=== PATIENT | male | born 1965 | race Caucasian/White ===

== ENCOUNTER 2020-03-02 11:48 | Emergency (ER) | payer OTHER, SELFPAY ==
[2020-03-02] VITALS (8 sets, daily range): BP systolic 120–159; BP diastolic 77–90; PULSE 93–153; RESP 10–20; TEMP 36.9; O2SAT 94–97; BMI 38.6
--- NOTE | 2020-03-02 11:03 | ECG_ITS ---
Test Reason : ON METHADONE Blood Pressure : / mmHG Vent. Rate : 141 BPM Atrial Rate : 150 BPM P-R Int : 000 ms QRS Dur : 088 ms QT Int : 306 ms P-R-T Axes : 000 016 -05 degrees QTc Int : 468 ms Atrial fibrillation with rapid ventricular response Nonspecific ST and T wave abnormality Abnormal ECG When compared with ECG of 02-MAR-2020 11:18, Non-specific change in ST segment in Inferior leads Referred By: Fanny Bermudez Electronically Signed By:ANGELO GOMEZ MD
--- NOTE | 2020-03-02 11:54 | ECG_ITS ---
Test Reason : TACHYCARDIA Blood Pressure : / mmHG Vent. Rate : 148 BPM Atrial Rate : 144 BPM P-R Int : 000 ms QRS Dur : 090 ms QT Int : 308 ms P-R-T Axes : 000 025 012 degrees QTc Int : 483 ms Atrial fibrillation with rapid ventricular response Nonspecific ST abnormality Abnormal ECG When compared with ECG of 02-MAR-2020 11:22, No significant change was found Referred By: Fanny Bermudez Electronically Signed By:ANGELO GOMEZ MD
--- NOTE | 2020-03-02 11:55 | XR_ITS ---
EXAMINATION: XR CHEST CLINICAL INFORMATION: Palpitations COMPARISON: None TECHNIQUE: Frontal view of the chest was obtained. FINDINGS: The lungs are well-expanded and clear of acute process. The heart size and pulmonary vascularity is normal. No gross bony abnormality seen. XR/XR chest 1V IMPRESSION: Unremarkable chest exam.
--- NOTE | 2020-03-02 11:57 | ED.ARRPALP ---
HPI - Arrhythmia/Palpitations General Chief Complaint: Recheck/Abnormal Lab/Rx Time Seen by Provider: 03/02/20 11:54 Source: patient Mode of arrival: ambulatory Limitations: no limitations History of Present Illness HPI narrative: sent by cardiology office for afib with RVR - asymptomatic, found on routine yearly EKG patient finally broke to sinus tachycardia - will start on metoprolol take off amlodipine and start on eliquis - he has a chadsvasc2 score of 1 at this time MD complaint: rapid heart beat Onset (ago): unknown Duration: constant Severity: mild Context: occurred during rest Associated symptoms: denies other symptoms Related Data Home Medications Medication Instructions Recorded Confirmed acetaminophen [Tylenol] 650 mg PO QID PRN 03/02/20 03/02/20 amlodipine 10 mg PO DAILY 03/02/20 03/02/20 ibuprofen 800 mg PO QID PRN 03/02/20 03/02/20 methadone 30 mg PO DAILY@1700 03/02/20 03/02/20 Previous Rx's Medication Instructions Recorded apixaban [Eliquis] 5 mg PO Q12H #60 tab 03/02/20 metoprolol succinate 50 mg PO DAILY #30 ea 03/02/20 Allergies Allergy/AdvReac Type Severity Reaction Status Date / Time fentanyl [FENTANYL] Allergy Severe VERY Verified 03/02/20 11:55 SHALLOW BREATHING W/LARGE DOSES, shallow breathing baclofen [BACLOFEN] Allergy Unknown HEADACHE Verified 03/02/20 11:55 naproxen [NAPROXEN] AdvReac Mild HEADACHE Verified 03/02/20 11:55 Review of Systems Review of Systems: Constitutional : No Weight loss, No Fever, No Chills, No Fatigue, No Malaise ENT/Mouth : No sore throat, No Rhinorrhea Eyes: No Eye Pain, No Swelling, No Redness Cardiovascular : No Chest Pain, No SOB, No Dyspnea on Exertion, No Orthopnea, No Edema, No Palpitations Respiratory : No Cough, No Sputum, No Wheezing Gastrointestinal : No Nausea, No Vomiting, No Diarrhea, No Constipation, No abdominal Pain, No Hematochezia, No Melena Genitourinary : No Dysuria, No Urinary Frequency, No Hematuria, Musculoskeletal : pos 3 weeks of L shoulder joint pain, No Myalgias, No Joint Swelling Skin : No Skin Lesions, No rash Neuro : No Weakness, No Numbness, No Dizziness, No Headache Psych : No Anxiety/Panic, No Depression Heme/Lymph: No Bruising, No Bleeding,No Lymphadenopathy Endocrine : No Polyuria, No Polydipsia All other systems reviewed and are negative [facility] Past Medical History Attestation statement: The following information was validated with the patient. Medical History Chronic pain HTN (hypertension) Social History Social History (Updated 03/02/20 @ 12:06 by Fanny Bermudez DO) Smoking Status: Never smoker Use of substances other than those prescribed or required for medical reasons: No Physical Exam Vital Signs: Vital Signs: Last Vital Signs Temp 98.4 F 03/02/20 11:51 Pulse 93 03/02/20 15:43 Resp 18 03/02/20 15:24 BP 120/86 03/02/20 15:43 Pulse Ox 96 03/02/20 15:24 Body Mass Index 38.6 Appearance: Alert. Oriented X3. No acute distress. Eyes: Pupils equal, round and reactive to light. ENT: Pharynx normal. Neck: Normal inspection. Neck supple. CVS: tachycardic and irregular heart rate and rhythm. Pulses normal. Respiratory: No respiratory distress. Breath sounds normal. Abdomen: Soft and non-tender. Skin: Skin warm and dry. Normal skin color. Normal skin turgor. Extremities: No lower extremity edema. No calf ttp Neuro: Oriented X 3. No motor deficit. No sensory deficit. Course Course Course Narrative: patient no response to IV bolus, will start on diltiazem drip HR 105 on dilt gtt blood workup negative, chadsvasc score 1 will start on eliquis until he follows up with PCP and Cardiology patient in NSR will give oral metoprolol and likely DC home with m MDM - Arrhythmia/Palpitations MDM Narrative Medical decision making narrative: 55 yo male with hx of HTN and chronic pain who is on methadone presented as outpatient for yearly EKG (qTc check with methadone) - found to be in afib with RVR he is completely asymptomatic, his only new complaint is L shoulder pain x 3 weeks which he is taking medications for through PCP at this time will need labs, ddimer, troponin, CXR, IV dilt for rate control, dispo per results and findings. Lab Data Result diagrams: 03/02/20 11:59 12/01/20 12:00 Labs: Lab Results 03/02/20 03/02/20 03/02/20 Range/Units 11:59 11:59 11:59 WBC 7.3 (4.8-10.8) X10*3/uL RBC 4.89 (4.60-5.80) X10*6/uL Hgb 14.4 (14.0-18.0) g/dl Hct 44.6 (42-52) % MCV 91.2 (80-98) fL MCH 29.4 (27.0-33.0) pg MCHC 32.3 (31.0-36.0) g/dl RDW 13.8 (11.0-16.0) % Plt Count 229 (160-400) X10*3/uL MPV 8.8 L (9.4-12.4) fL Immature Gran % (Auto) 0.3 (0.0-0.4) % Neut % (Auto) 70.0 (45-73) % Lymph % (Auto) 19.9 L (20-40) % [place] % (Auto) 8.9 (2-11) % Eos % (Auto) 0.6 (0-4) % Baso % (Auto) 0.3 (0-2) % Lymph # (Auto) 1.5 (1.2-4.9) X10*3/uL [place] # (Auto) 0.7 (0.1-1.2) X10*3/uL Eos # (Auto) 0.0 (0.0-0.4) X10*3/uL Baso # (Auto) 0.0 (0.0-0.2) X10*3/uL Abs Immat Gran (auto) 0.02 (0.00-0.03) X10*3/uL Absolute Neuts (auto) 5.1 (2.0-8.3) X10*3/uL Absolute Nucleated RBC 0.000 (0.0-0.012) X10*3/uL Nucleated RBC % (auto) 0.0 (0.0-0.2) /100WBC PT 10.8 (10.8-13.0) SEC INR 0.9 (0.9-1.1) APTT 29.8 (24.1-38.0) SEC D-Dimer < 200 NG/ML Sodium (135-145) mmol/L Potassium (3.3-5.1) mmol/l Chloride (96-108) mmol/L Carbon Dioxide (22-29) mmol/L Anion Gap (12-20) BUN (9-16) mg/dL Creatinine (0.5-1.4) mg/dL Estim Creat Clear Calc Estimated GFR Random Glucose (60-115) mg/dL Calcium 9.2 (8.4-10.2) mg/dL Magnesium 2.0 (1.6-2.6) mg/dL Total Bilirubin 0.4 (0.0-1.0) mg/dL Direct Bilirubin < 0.2 (0.0-0.5) mg/dL AST 23 (5-37) U/L ALT 34 (0-40) U/L Alkaline Phosphatase 104 (39-117) U/L Troponin I High Sens (<3.5-35.0) ng/L B-Natriuretic Peptide (<100) pg/mL Total Protein 7.7 (6.5-8.0) g/dL Albumin 4.7 (3.5-5.0) g/dL TSH 0.38 (0.32-4.0) uIU/mL COVID-19 (GUY) (Negative) COVID-19 Clin Com 03/02/20 03/02/20 03/02/20 Range/Units 11:59 12:00 12:00 WBC (4.8-10.8) X10*3/uL RBC (4.60-5.80) X10*6/uL Hgb (14.0-18.0) g/dl Hct (42-52) % MCV (80-98) fL MCH (27.0-33.0) pg MCHC (31.0-36.0) g/dl RDW (11.0-16.0) % Plt Count (160-400) X10*3/uL MPV (9.4-12.4) fL Immature Gran % (Auto) (0.0-0.4) % Neut % (Auto) (45-73) % Lymph % (Auto) (20-40) % [place] % (Auto) (2-11) % Eos % (Auto) (0-4) % Baso % (Auto) (0-2) % Lymph # (Auto) (1.2-4.9) X10*3/uL [place] # (Auto) (0.1-1.2) X10*3/uL Eos # (Auto) (0.0-0.4) X10*3/uL Baso # (Auto) (0.0-0.2) X10*3/uL Abs Immat Gran (auto) (0.00-0.03) X10*3/uL Absolute Neuts (auto) (2.0-8.3) X10*3/uL Absolute Nucleated RBC (0.0-0.012) X10*3/uL Nucleated RBC % (auto) (0.0-0.2) /100WBC PT (10.8-13.0) SEC INR (0.9-1.1) APTT (24.1-38.0) SEC D-Dimer NG/ML Sodium 140 (135-145) mmol/L Potassium 4.2 (3.3-5.1) mmol/l Chloride 101 (96-108) mmol/L Carbon Dioxide 29 (22-29) mmol/L Anion Gap 14 (12-20) BUN 15 (9-16) mg/dL Creatinine 0.76 (0.5-1.4) mg/dL Estim Creat Clear Calc 158.8 Estimated GFR > 60 Random Glucose 125 H (60-115) mg/dL Calcium 9.1 (8.4-10.2) mg/dL Magnesium (1.6-2.6) mg/dL Total Bilirubin (0.0-1.0) mg/dL Direct Bilirubin (0.0-0.5) mg/dL AST (5-37) U/L ALT (0-40) U/L Alkaline Phosphatase (39-117) U/L Troponin I High Sens < 3.5 (<3.5-35.0) ng/L B-Natriuretic Peptide < 10 (<100) pg/mL Total Protein (6.5-8.0) g/dL Albumin (3.5-5.0) g/dL TSH (0.32-4.0) uIU/mL COVID-19 (GUY) (Negative) COVID-19 Clin Com 03/02/20 Range/Units 12:00 WBC (4.8-10.8) X10*3/uL RBC (4.60-5.80) X10*6/uL Hgb (14.0-18.0) g/dl Hct (42-52) % MCV (80-98) fL MCH (27.0-33.0) pg MCHC (31.0-36.0) g/dl RDW (11.0-16.0) % Plt Count (160-400) X10*3/uL MPV (9.4-12.4) fL Immature Gran % (Auto) (0.0-0.4) % Neut % (Auto) (45-73) % Lymph % (Auto) (20-40) % [place] % (Auto) (2-11) % Eos % (Auto) (0-4) % Baso % (Auto) (0-2) % Lymph # (Auto) (1.2-4.9) X10*3/uL [place] # (Auto) (0.1-1.2) X10*3/uL Eos # (Auto) (0.0-0.4) X10*3/uL Baso # (Auto) (0.0-0.2) X10*3/uL Abs Immat Gran (auto) (0.00-0.03) X10*3/uL Absolute Neuts (auto) (2.0-8.3) X10*3/uL Absolute Nucleated RBC (0.0-0.012) X10*3/uL Nucleated RBC % (auto) (0.0-0.2) /100WBC PT (10.8-13.0) SEC INR (0.9-1.1) APTT (24.1-38.0) SEC D-Dimer NG/ML Sodium (135-145) mmol/L Potassium (3.3-5.1) mmol/l Chloride (96-108) mmol/L Carbon Dioxide (22-29) mmol/L Anion Gap (12-20) BUN (9-16) mg/dL Creatinine (0.5-1.4) mg/dL Estim Creat Clear Calc Estimated GFR Random Glucose (60-115) mg/dL Calcium (8.4-10.2) mg/dL Magnesium (1.6-2.6) mg/dL Total Bilirubin (0.0-1.0) mg/dL Direct Bilirubin (0.0-0.5) mg/dL AST (5-37) U/L ALT (0-40) U/L Alkaline Phosphatase (39-117) U/L Troponin I High Sens (<3.5-35.0) ng/L B-Natriuretic Peptide (<100) pg/mL Total Protein (6.5-8.0) g/dL Albumin (3.5-5.0) g/dL TSH (0.32-4.0) uIU/mL COVID-19 (GUY) Negative (Negative) COVID-19 Clin Com See Note ECG Data Attestation: I personally reviewed and interpreted this ECG as follows: ECG interpretation date: 03/02/20 ECG interpretation time: 12:04 Interpretation: Rate: 140s Rhythm: afib with RVR [place]: normal Normal P waves. Normal GEORGE. Normal QRS complex. ST T wave : nonspecific, no OSCAR qTC: normal prior studies: changed from prior The study has been interpreted contemporaneously by me. . Rate: 93 Rhythm: NSR [place]: normal Normal P waves. Normal GEORGE. Normal QRS complex. ST T wave : no OSCAR normal ST t waves qTC: normal prior studies: changed, no acute ischemia now in NSR The study has been interpreted contemporaneously by me. . Critical Care Time Critical Care Time Critical Care Time: Yes Total Critical Care Time: 35 Attestation: IV diltiazem bolus and IV diltiazem drip for afib with RVR I attest to this time spent taking care of the patient Discharge Plan Discharge Clinical Impression: Atrial fibrillation Qualifiers: Atrial fibrillation type: unspecified Qualified Code(s): I48.91 - Unspecified atrial fibrillation Patient Disposition: Home, Self-Care Instructions: A-fib (Atrial Fibrillation) (ED), Safe Use of Anticoagulants (ED) Additional Instructions: return to ED for any worsening symptoms or concerns stop taking amlodipine start taking eliquis tonight, no NSAIDs or aspirin with eliquis Prescriptions: New metoprolol succinate 50 mg capsule,sprinkle,ER 24hr 50 mg PO DAILY Qty: 30 RF: 0 Eliquis 5 mg tablet 5 mg PO Q12H Qty: 60 RF: 0 No Action acetaminophen [Tylenol] 325 mg Tablet 650 mg PO QID PRN (Reason: Pain) RF: 0 ibuprofen 800 mg Tablet 800 mg PO QID PRN (Reason: Pain) RF: 0 methadone 10 mg Tablet 30 mg PO DAILY@1700 RF: 0 amlodipine 10 mg Tablet 10 mg PO DAILY RF: 0 Referrals: Prieto Alvarado MD [Primary Care Provider] - 2 days (call for next available appointment) Stand Alone Forms: Work/School Release
[2020-03-02] MEDS: dilTIAZem HCL 50 MG/10 ML VIAL 10 MG IVPUSH (12:03)
[2020-03-02 12:08] LABS: Basophils Percent Auto 0.3 % (0-2); Eosinophils Percent Auto 0.6 % (0-4); Hematocrit 44.6 % (42-52); Hemoglobin 14.4 g/dl (14.0-18.0); Imm Gran Abs Auto 0.02 X10*3/uL (0.00-0.03); Imm Gran Pct Auto 0.3 % (0.0-0.4); Lymphocytes Absolute Auto 1.5 X10*3/uL (1.2-4.9); Lymphocytes Percent Auto 19.9 % (20-40); Mean Corpuscular HGB Conc 32.3 g/dl (31.0-36.0); Mean Corpuscular Hemoglobin 29.4 pg (27.0-33.0); Mean Corpuscular Volume 91.2 fL (80-98); Mean Platelet Volume 8.8 fL (9.4-12.4); Monocytes Absolute Auto 0.7 X10*3/uL (0.1-1.2); Monocytes Percent Auto 8.9 % (2-11); Neutrophils Absolute Auto 5.1 X10*3/uL (2.0-8.3); Platelet Count 229 X10*3/uL (160-400); Red Blood Count 4.89 X10*6/uL (4.60-5.80); Red Cell Distribution Width 13.8 % (11.0-16.0); White Blood Count 7.3 X10*3/uL (4.8-10.8)
[2020-03-02 12:09] LABS: MANUAL DIFF FLAG NO
[2020-03-02 12:15] LABS: INTERNATIONAL NORM RATIO 0.9 (0.9-1.1); Prothrombin Time 10.8 SEC (10.8-13.0)
[2020-03-02 12:17] LABS: Partial Thromboplastin Time 29.8 SEC (24.1-38.0)
[2020-03-02 12:18] LABS: D Dimer < 200 NG/ML
[2020-03-02 12:25] LABS: COVID-19 Test Negative (Negative)
[2020-03-02 12:37] LABS: Anion Gap 14 (12-20); Blood Urea Nitrogen 15 mg/dL (9-16); Calcium 9.1 mg/dL (8.4-10.2); Carbon Dioxide 29 mmol/L (22-29); Chloride 101 mmol/L (96-108); Creatinine Clr Calc Pharmacy 158.8; Estimated Glomerular Filt Rate > 60; Glucose Random 125 mg/dL (60-115); Potassium 4.2 mmol/l (3.3-5.1); Sodium 140 mmol/L (135-145)
[2020-03-02 12:39] LABS: Alanine Aminotransferase 34 U/L (0-40); Albumin Level 4.7 g/dL (3.5-5.0); Alkaline Phosphatase 104 U/L (39-117); Aspartate Amino Transferase 23 U/L (5-37); Bilirubin Direct < 0.2 mg/dL (0.0-0.5); Bilirubin Total 0.4 mg/dL (0.0-1.0); Calcium 9.2 mg/dL (8.4-10.2); Total Protein 7.7 g/dL (6.5-8.0)
[2020-03-02 12:43] LABS: Troponin-I High Sensitivity < 3.5 ng/L (<3.5-35.0)
[2020-03-02 12:45] LABS: B Type Natriuretic Peptide < 10 pg/mL (<100)
[2020-03-02 12:59] LABS: Thyroid Stimulating Hormone 0.38 uIU/mL (0.32-4.0)
--- NOTE | 2020-03-02 13:02 | PC.NURSE ---
CARDIZEM TITRATED UP TO 15MG/HR, REMAINS IN RAPID AFIB BETWEEN 120 AND 140BPM. REMAINS ASYMPTOMATIC, REPORTING L ELBOW PAIN ONLY.
--- NOTE | 2020-03-02 14:08 | ECG_ITS ---
Test Reason : REPEAT Blood Pressure : / mmHG Vent. Rate : 093 BPM Atrial Rate : 093 BPM P-R Int : 166 ms QRS Dur : 094 ms QT Int : 360 ms P-R-T Axes : 019 026 034 degrees QTc Int : 447 ms Normal sinus rhythm Normal ECG When compared with ECG of 02-MAR-2020 11:56, Sinus rhythm has replaced Atrial fibrillation Vent. rate has decreased BY 55 BPM Non-specific change in ST segment in Inferior leads ST no longer depressed in Anterolateral leads Referred By: Fanny Bermudez Electronically Signed By:ANGELO GOMEZ MD
[2020-03-02] MEDS: Metoprolol Tartrate 25 MG TABLET PO (15:43)
== END 2020-03-02 16:00 | disposition home or self-care (01) ==
LOC: HO.ED 11:49
PROVIDERS: Emergency Provider Emergency Medicine; PCP Family Medicine; Visit Provider Family Medicine
DX: I48.91 Unspecified atrial fibrillation (principal); I10 Essential (primary) hypertension; G89.29 Other chronic pain; Z79.891 Long term (current) use of opiate analgesic; Z20.828 Contact with and (suspected) exposure to other viral communicable diseases
CPT/HCPCS: 36415; 71045; 80048; 80076; 82310; 83735; 83880; 84443; 84484; 85025; 85379; 85610; 85730; 87635; 93005; 96365; 96366; 96375; 99284; 99291

== ENCOUNTER 2020-03-08 16:08 | Outpatient (REF) | payer OTHER, SELFPAY ==
[2020-03-08 17:39] LABS: Amphetamine Screen Urine Not Detected (Not Detect); Barbiturates, Urine Not Detected (Not Detect); Benzodiazepines Screen Urine Not Detected (Not Detect); Cannabinoid Screen Urine Not Detected (Not Detect); Cocaine Screen Urine Not Detected (Not Detect); Opiate Screen Urine Not Detected (Not Detect); Phencyclidine Screen Urine Not Detected (Not Detect)
[2020-03-08 17:45] LABS: Free T4 (Free Thyroxine) 0.98 ng/dL (0.71-1.85)
== END 2020-03-08 16:09 | disposition home or self-care (01) ==
LOC: HO.LAB 16:08
PROVIDERS: PCP Family Medicine; Visit Provider Family Medicine
DX: I48.91 Unspecified atrial fibrillation (principal); Z79.891 Long term (current) use of opiate analgesic
CPT/HCPCS: 80307; 84439; 84443

== ENCOUNTER → 2020-03-24 12:52 | Outpatient (REF) | payer OTHER, SELFPAY ==
--- NOTE | 2020-03-24 13:00 | CA_ITS ---
Transthoracic Echocardiogram Patient (Last, First, Middle): Leonardo Howe A Gender: Male Date of : 1965 Age: 55 Procedure Date: 03/24/2020 Procedure Type: Transthoracic Echocardiogram Location: OP Height: 185.42 cm Weight: 134.72 kg BSA: 2.55 m2 Heart Rate: bpm BP: 138 / 80 mmHg Material Analyst: Referring MD: Prieto Alvarado MD Tow Driver: Tod Pina MD Symptoms: I48.91 AFIB Study Quality: Fair ECG Rhythm: Sinus Conclusions: - 1. Normal LV systolic and diastolic function 2. Normal cardiac valvular Doppler 3. Normal RV systolic pressure 4. No pericardial effusion Findings Left Ventricle Normal left ventricular size, thickness, and systolic function. The visually estimated ejection fraction is between 60-65%. Diastolic function is normal for age. Right Ventricle Normal right ventricular cavity size and systolic function. Atria The left atrium is likely dilated. There is lipomatous hypertrophy of the interatrial septum. There is no evidence of interatrial shunt. The right atrium is normal in size. Aortic Valve Normal aortic valve structure and function. There is no aortic valve stenosis. There is no aortic valve regurgitation. Mitral Valve Normal mitral valve structure and function. There is trace mitral valve regurgitation. There is no mitral valve stenosis. Pulmonic Valve The pulmonic valve is likely normal. Tricuspid Valve Normal tricuspid valve structure. There is trace tricuspid valve regurgitation. The right ventricular systolic pressure is normal. The right ventricular systolic pressure is 18 mmHg. There is no evidence of pulmonary hypertension. Great Vessels All visible segments of the aorta are normal in size. The pulmonary artery was not well visualized. Venous The inferior vena cava is normal in size and collapses greater than 50% with inspiration. Pericardium/Pleural There is no evidence of pericardial effusion. Prior Study Comparison No prior study available for comparison. Measurements 2D Linear Measurements IVSd: 1.07 0.6-0.9/0.6-1.0 cm LVIDd: 5.39 3.9-5.3/4.2-5.9 cm LVIDd Index: 2.11 2.4-3.2/2.2-3.1 cm/m2 LVIDs: 3.35 2.0-3.6 cm LVPWd: 0.96 0.7-1.1 cm Ao Root: 3.60 2.1-3.5 cm LA Diam: 4.00 2.7-3.8/3.0-4.0 cm LAIDs Index: 1.57 1.5-2.3 cm/m2 LV Mass: 387.80 67-162/88-224 g LV Mass Index: 152.08 43-95/49-115 g/m2 LVOT Diam: 2.30 3.0+(-)1.3 cm Mitral Valve MV Pk E: 0.90 MV PK A: 0.71 MV Decel Time: 222.00 E/A: 1.30 E'Lateral: 16.40 E'Medial: 15.00 E/E' Med: 6.00 E/E' Lat: 5.50 PHT: 65.00 MVA PHT: 3.38 Decel [place]: 4.05 Aortic Valve AoV Pk Sylv[place]: 1.08 AoV Mn [place]: 0.75 AoV VTI: 0.26 AoV Pk Grad: 5.00 Aov Mn Grad: 3.00 MARLA Cont.VTI: 2.96 LVOT LVOT Pk [place]: 0.84 LVOT Mn [place]: 0.55 LVOT VTI: 0.18 LVOT Pk Grad: 3.00 LVOT Mn Grad: 1.00 LVOT Diam: 2.30 LVOT Area: 4.15 Diastolic Function MV Pk E: 0.90 MV Pk A: 0.71 E/A: 1.30 E'Medial: 15.00 E/E' Med: 6.00 E' Laterial: 16.40 E/E' Lat: 5.50 Tricuspid Valve TR Pk Sylvain: 2.00 TR Pk Grad: 10.00 RA Press: 16.00 RVSP: 18.00 Great Vessels Aorta Ao Root-2D: 3.60 2.0-3.7 cm Ao Asc: 3.60 2.1-3.4 cm Pulmonary Valve PV Pk Sylvain: 1.17 Peak PV Grad: 5.00 Updated in Other Vendor System with Status of Final Tod Pina MD electronically signed on 03/26/2020 1:52:45 PM with status of Final
== END ==
LOC: HO.CARD 12:52
PROVIDERS: PCP Family Medicine; Visit Provider Family Medicine
DX: I48.91 Unspecified atrial fibrillation (principal)
CPT/HCPCS: 93306

== ENCOUNTER → 2020-05-25 12:35 | Outpatient (BNVA) | payer OTHER, SELFPAY | PROVIDERS: PCP Family Medicine; Visit Provider Internal Medicine | DX: I48.0 Paroxysmal atrial fibrillation (principal); I10 Essential (primary) hypertension; E66.01 Morbid (severe) obesity due to excess calories | CPT/HCPCS: 93005 ==

== ENCOUNTER → 2020-06-10 12:59 | Outpatient (REF) | payer OTHER, SELFPAY | LOC: HO.SL 12:59 | PROVIDERS: PCP Family Medicine; Visit Provider Internal Medicine | DX: G47.33 Obstructive sleep apnea (adult) (pediatric) (principal); I48.0 Paroxysmal atrial fibrillation | CPT/HCPCS: 95806 ==

== ENCOUNTER 2020-07-24 21:19 | Emergency (ER) | payer OTHER, SELFPAY ==
--- NOTE | ~2020-07-24 | XR_ITS ---
EXAMINATION: XR CHEST CLINICAL INFORMATION: Shortness of breath COMPARISON: Chest 03/02/2020 TECHNIQUE: Frontal view of the chest was obtained. FINDINGS: No significant abnormality is noted involving the heart, lungs, mediastinum, bony thorax or soft tissues. XR/XR chest 1V IMPRESSION: Unremarkable chest exam.
[2020-07-24 21:21] VITALS: BP 132/102; PULSE 114; RESP 20; TEMP 37.1; O2SAT 97; BMI 37.5
--- NOTE | 2020-07-24 22:10 | ED.GENADULT ---
HPI - General Adult General Chief complaint: Arrhythmia/Palpitations Stated complaint: Afib Time Seen by Provider: 07/24/20 21:36 Source: patient Mode of arrival: ambulatory Limitations: no limitations History of Present Illness HPI narrative: 55-year-old male who presents emergency department for evaluation shortness of breath, dyspnea on exertion and atrial fibrillation. Patient states that he has a history of atrial fibrillation which was 1st diagnosed in February 2020. He states these had 2-3 episodes of atrial fibrillation since that time. He states that last night he felt an ?funky ?but is vague in describing the sensation. He states that today he felt short of breath and had dyspnea on exertion. He states that he used a pulse oximeter at home and his pulse was varying 74-140 beats per minute. He states that he did take his 2 doses of metoprolol today. He continued to have an irregular pulse and felt short of breath with dyspnea on exertion therefore came to the emergency department for evaluation. He denies the sensation of palpitations. He denied chest pain. He states he does feel dizzy and slightly lightheaded. He states these had shortness of breath and dyspnea on exertion all day. He denied fever, chills, cough, nausea or vomiting. States he did feel slightly diaphoretic today but this is not unusual for him. He has never had to be cardioverted. The patient did have a normal echocardiogram on 03/2106/20/2019 which revealed normal LV systolic and diastolic function, normal RV systolic function and normal cardiac valves. The patient has not had a COVID-19 infection. He had the [employer] COVID-19 vaccination on July 05, 2020. Related Data Home Medications Medication Instructions Recorded Confirmed methadone 30 mg PO DAILY@1700 03/02/20 05/25/20 amlodipine 10 mg-benazepril 20 mg 1 cap PO DAILY 05/25/20 05/25/20 capsule metoprolol succinate 50 mg 50 mg PO BID tab 05/25/20 05/25/20 tablet,extended release 24 hr Allergies Allergy/AdvReac Type Severity Reaction Status Date / Time fentanyl [FENTANYL] Allergy Severe VERY Verified 07/24/20 21:27 SHALLOW BREATHING W/LARGE DOSES baclofen [BACLOFEN] Allergy Unknown HEADACHE Verified 07/24/20 21:27 naproxen [NAPROXEN] AdvReac Mild HEADACHE Verified 07/24/20 21:27 Review of Systems Review of Systems: Yes all other systems are reviewed and are negative PENDING SALE TO [facility] Past Medical History Medical History Chronic pain Essential hypertension HTN (hypertension) Morbid obesity PAF (paroxysmal atrial fibrillation) Surgical History History of elbow surgery History of knee surgery Family History Family History Father No problems noted. Mother Heart disease Maternal Uncle No problems noted. Social History Social History Smoking Status: Never smoker Use of substances other than those prescribed or required for medical reasons: No Advance Directives: No Advance Directives Information Provided: Yes Physical Exam Vital Signs: Vital Signs: Last Vital Signs Temp 98.7 F 07/24/20 21:21 Pulse 83 07/25/20 00:47 Resp 16 07/25/20 00:47 BP 101/58 L 07/25/20 00:47 Pulse Ox 94 07/24/20 23:33 Body Mass Index 37.5 Const: General: cooperative Nutritional Appearance: overweight Orientation/consciousness: oriented to person and oriented to place Limitations: no limitations HENMT: Head: Yes normal to inspection, Yes normocephalic and Yes atraumatic Ears: external ears normal General nose exam: Normal external nose present Face and sinus: Yes normal facial exam Mouth: Normal oral and palatal mucosa present Throat: Yes posterior oropharynx normal Eyes: Periorbital: periorbital findings normal Eyelids: Yes eyelids normal Conjunctivae: conjunctivae normal Sclerae: sclerae normal Corneas: corneas normal Pupils: Equal, round and reactive pupils present Direct Ophthalmoscopy: normal light reflex Neck: Neck: Yes full ROM, Yes no lymphadenopathy, Yes no meningeal signs, Yes trachea midline and Yes supple Chest: Chest palpation & inspection: normal inspection of the chest and normal palpation of entire chest wall Resp: Effort & Inspection: normal respiratory effort and able to speak in complete sentences Auscultation: clear to auscultation bilaterally Cardio: Rate: tachycardic Rhythm: abnormal rhythm irregularly irregular Heart sounds: S1 normal heart sound present, S2 normal heart sound present and no murmurs GI: Inspection: Yes normal to inspection Palpation (GI): Soft to palpation, nontender, no guarding, not rigid and No hepatosplenomegaly present : General: Yes no CVA tenderness Back/Spine/Pelvis: Back: no CVA tenderness Cervical Spine: normal cervical lordosis Thoracic/Lumbar Spine: thoracic and lumbar spine normal to inspection Skin: Lesions: no lesions Rashes: no rashes Wounds: no wounds Neuro: General: oriented to person, oriented to place and no meningeal signs Cranial nerves: Yes CN's II-XII intact bilaterally and Yes Equal, round and reactive pupils present Cognition (Neuro): normal cognition Motor exam (neuro): 5/5 motor strength present throughout Extrem: General: Yes normal to inspection and Yes full ROM Psych: Appearance: well kempt Mental Status: mental status grossly normal Speech and movement: Normal speech and movement present Affect: normal affect Attitude: cooperative Thought process: Normal thought process present Thought content: Normal thought content present Course Course Course Narrative: 55-year-old male with history of atrial fibrillation on Eliquis and metoprolol with normal LV and RV function based on previous echocardiogram 03/2020 who presents emergency department for evaluation of shortness of breath, dyspnea on exertion and irregular pulse detected on his pulse oximeter. Vital signs revealed hypertension with a blood pressure of 132/102, tachycardia with a pulse of 114 and an O2 saturation 97% on room air. The patient's heart exam did reveal a a rapid irregularly irregular heartbeat otherwise exam was unremarkable. Twelve lead EKG is consistent with atrial fibrillation with a rapid ventricular response of 120 beats per minute. The patient's dyspnea on exertion shortness of breath is most likely secondary to his atrial fibrillation is need for the atrial kick. The patient is on Eliquis and I did discuss electrical cardioversion with procedural sedation verses chemical cardioversion with flecainide. The patient chills, local cardioversion with flecainide. The patient was given diltiazem 10 mg IV and flecainide 300 mg orally. The patient will be kept on the cardiac tech for 4 hours to monitor ventricular arrhythmias and for cardioversion. 2348: The patient's laboratory evaluation was unremarkable with a nondetectable troponin. The patient appears to be in a normal sinus rhythm and this was confirmed with an EKG done at 11:39 p.m.. The patient will be monitored until 3:00 a.m. the make sure the does not have any arrhythmias and if he remains in a sinus rhythm he will be discharged home. 0210: The patient did have an episode of asymptomatic hypotension with blood pressure dropping below 90. He was ordered to get normal saline IV x1 L. the patient has had no a arrhythmias at this point and will be observed until 3:00 a.m.. If he remains stable he will be discharged to home and Medical Decision Making Lab Data Result diagrams: 07/24/20 22:10 07/24/20 22:10 Labs: Lab Results 07/24/20 07/24/20 07/24/20 Range/Units 22:09 22:10 22:10 WBC 7.5 (4.8-10.8) X10*3/uL RBC 4.93 (4.60-5.80) X10*6/uL Hgb 14.7 (14.0-18.0) g/dl Hct 44.2 (42-52) % MCV 89.7 (80-98) fL MCH 29.8 (27.0-33.0) pg MCHC 33.3 (31.0-36.0) g/dl RDW 13.3 (11.0-16.0) % Plt Count 226 (160-400) X10*3/uL MPV 9.2 L (9.4-12.4) fL Immature Gran % (Auto) 0.3 (0.0-0.4) % Neut % (Auto) 67.3 (45-73) % Lymph % (Auto) 22.7 (20-40) % Mckinley % (Auto) 9.1 (2-11) % Eos % (Auto) 0.5 (0-4) % Baso % (Auto) 0.1 (0-2) % Lymph # (Auto) 1.7 (1.2-4.9) X10*3/uL Mckinley # (Auto) 0.7 (0.1-1.2) X10*3/uL Eos # (Auto) 0.0 (0.0-0.4) X10*3/uL Baso # (Auto) 0.0 (0.0-0.2) X10*3/uL Abs Immat Gran (auto) 0.02 (0.00-0.03) X10*3/uL Absolute Neuts (auto) 5.0 (2.0-8.3) X10*3/uL Absolute Nucleated RBC 0.000 (0.0-0.012) X10*3/uL Nucleated RBC % (auto) 0.0 (0.0-0.2) /100WBC PT 13.7 H D (10.8-13.0) SEC INR 1.2 H (0.9-1.1) APTT 37.5 (24.1-38.0) SEC Sodium (135-145) mmol/L Potassium (3.3-5.1) mmol/L Chloride (96-108) mmol/L Carbon Dioxide (22-29) mmol/L Anion Gap (12-20) BUN (9-16) mg/dL Creatinine (0.5-1.4) mg/dL Estim Creat Clear Calc Estimated GFR Random Glucose (60-115) mg/dL Calcium (8.4-10.2) mg/dL Total Bilirubin (0.0-1.0) mg/dL AST (5-37) U/L ALT (0-40) U/L Alkaline Phosphatase (39-117) U/L Troponin I High Sens < 3.5 (<3.5-35.0) ng/L Total Protein (6.5-8.0) g/dL Albumin (3.5-5.0) g/dL 07/24/20 Range/Units 22:10 WBC (4.8-10.8) X10*3/uL RBC (4.60-5.80) X10*6/uL Hgb (14.0-18.0) g/dl Hct (42-52) % MCV (80-98) fL MCH (27.0-33.0) pg MCHC (31.0-36.0) g/dl RDW (11.0-16.0) % Plt Count (160-400) X10*3/uL MPV (9.4-12.4) fL Immature Gran % (Auto) (0.0-0.4) % Neut % (Auto) (45-73) % Lymph % (Auto) (20-40) % Mckinley % (Auto) (2-11) % Eos % (Auto) (0-4) % Baso % (Auto) (0-2) % Lymph # (Auto) (1.2-4.9) X10*3/uL Mckinley # (Auto) (0.1-1.2) X10*3/uL Eos # (Auto) (0.0-0.4) X10*3/uL Baso # (Auto) (0.0-0.2) X10*3/uL Abs Immat Gran (auto) (0.00-0.03) X10*3/uL Absolute Neuts (auto) (2.0-8.3) X10*3/uL Absolute Nucleated RBC (0.0-0.012) X10*3/uL Nucleated RBC % (auto) (0.0-0.2) /100WBC PT (10.8-13.0) SEC INR (0.9-1.1) APTT (24.1-38.0) SEC Sodium 140 (135-145) mmol/L Potassium 4.2 (3.3-5.1) mmol/L Chloride 104 (96-108) mmol/L Carbon Dioxide 25 (22-29) mmol/L Anion Gap 15 (12-20) BUN 20 H (9-16) mg/dL Creatinine 1.03 (0.5-1.4) mg/dL Estim Creat Clear Calc 115.5 Estimated GFR > 60 Random Glucose 191 H D (60-115) mg/dL Calcium 9.1 (8.4-10.2) mg/dL Total Bilirubin 0.2 (0.0-1.0) mg/dL AST 18 (5-37) U/L ALT 20 (0-40) U/L Alkaline Phosphatase 105 (39-117) U/L Troponin I High Sens (<3.5-35.0) ng/L Total Protein 7.0 (6.5-8.0) g/dL Albumin 4.2 (3.5-5.0) g/dL ECG Data Interpretation: EKG 1.: 2154: Atrial fibrillation with a ventricular rate of 120, normal QRS of 92 milliseconds, slightly prolonged QTC of [address] segment elevation, no ST segment depression, no T-wave abnormalities. No old EKG for comparison. EKG 2.: 2329: Normal sinus rhythm rate of 69, normal AL, QRS and QTC intervals, no ST segment elevation, no ST segment depression, no T-wave abnormalities. This is a normal EKG. Discharge Plan Discharge Clinical Impression: Atrial fibrillation with rapid ventricular response Patient Disposition: Home, Self-Care Instructions: Mary Ann (Atrial Fibrillation) (ED) Additional Instructions: Your EKG revealed that your in atrial fibrillation with a rapid ventricular response ranging from 100-140 beats per minute. Your laboratory evaluation was normal including an undetectable high sensitivity troponin. Your rapid rate was treated with diltiazem 10 mg IV. You were chemically cardioverted with flecainide 300 mg IV. Your EKG reveals that you are now and a sinus rhythm. Continue taking your medications as prescribed by your meat blender and your other doctors. Follow-up with your meat blender within 1 week to discuss further management of your paroxysmal (intermittent) atrial fibrillation Please return to the emergency department if your symptoms get worse or if you develop any symptoms that are concerning to you. Prescriptions: No Action methadone 10 mg Tablet 30 mg PO DAILY@1700 RF: 0 metoprolol succinate 50 mg tablet extended release 24 hr 50 mg PO BID RF: 0 amlodipine-benazepril 10-20 mg capsule 1 cap PO DAILY RF: 0
[2020-07-24 22:17] LABS: MANUAL DIFF FLAG NO
[2020-07-24 22:18] VITALS: BP 108/61; PULSE 122
[2020-07-24] MEDS: dilTIAZem HCL 50 MG/10 ML VIAL 10 MG IVPUSH (22:18)
[2020-07-24 22:19] LABS: Basophils Percent Auto 0.1 % (0-2); Eosinophils Percent Auto 0.5 % (0-4); Hematocrit 44.2 % (42-52); Hemoglobin 14.7 g/dl (14.0-18.0); Imm Gran Abs Auto 0.02 X10*3/uL (0.00-0.03); Imm Gran Pct Auto 0.3 % (0.0-0.4); Lymphocytes Absolute Auto 1.7 X10*3/uL (1.2-4.9); Lymphocytes Percent Auto 22.7 % (20-40); Mean Corpuscular HGB Conc 33.3 g/dl (31.0-36.0); Mean Corpuscular Hemoglobin 29.8 pg (27.0-33.0); Mean Corpuscular Volume 89.7 fL (80-98); Mean Platelet Volume 9.2 fL (9.4-12.4); Monocytes Absolute Auto 0.7 X10*3/uL (0.1-1.2); Monocytes Percent Auto 9.1 % (2-11); Neutrophils Percent Auto 67.3 % (45-73); Platelet Count 226 X10*3/uL (160-400); Red Blood Count 4.93 X10*6/uL (4.60-5.80); Red Cell Distribution Width 13.3 % (11.0-16.0); White Blood Count 7.5 X10*3/uL (4.8-10.8)
[2020-07-24 22:28] VITALS: BP 102/66; PULSE 132; PULSE 84; RESP 10; O2SAT 95
[2020-07-24 22:29] LABS: INTERNATIONAL NORM RATIO 1.2 (0.9-1.1); Prothrombin Time 13.7 SEC (10.8-13.0)
[2020-07-24 22:32] LABS: Partial Thromboplastin Time 37.5 SEC (24.1-38.0)
[2020-07-24 22:40] LABS: Alanine Aminotransferase 20 U/L (0-40); Albumin Level 4.2 g/dL (3.5-5.0); Alkaline Phosphatase 105 U/L (39-117); Anion Gap 15 (12-20); Aspartate Amino Transferase 18 U/L (5-37); Bilirubin Total 0.2 mg/dL (0.0-1.0); Blood Urea Nitrogen 20 mg/dL (9-16); Calcium 9.1 mg/dL (8.4-10.2); Carbon Dioxide 25 mmol/L (22-29); Chloride 104 mmol/L (96-108); Creatinine Clr Calc Pharmacy 115.5; Estimated Glomerular Filt Rate > 60; Glucose Random 191 mg/dL (60-115); Potassium 4.2 mmol/L (3.3-5.1); Sodium 140 mmol/L (135-145)
[2020-07-24 22:45] LABS: Troponin-I High Sensitivity < 3.5 ng/L (<3.5-35.0)
[2020-07-24 22:52] VITALS: BP 100/54; PULSE 72
[2020-07-24] MEDS: Flecainide Acetate 50 MG TABLET 300 MG PO (22:52)
--- NOTE | 2020-07-24 23:07 | PC.NURSE ---
Report taken from darryl Rios RN resuming care. Pt found sitting upright in bed with significant other at bedside. Pt aware of plan to monitor for 4 hours. VSS. Pt denies pain. Continue to monitor.
[2020-07-24 23:33] VITALS: BP 94/63; PULSE 75; RESP 16; O2SAT 94
[2020-07-24 23:34] VITALS: BP 86/59
--- NOTE | 2020-07-24 23:43 | PC.NURSE ---
Pt noted to be hypotensive, VS documented and reported to MD. Per MD, verbal order for 1 li NS, NS infusing per order. Pt denies SOB/palpitations at this time, noted to be in a NSR on the monitor @ 75 bpm. Repeat EKG obtained by this RN. Continue to monitor.
[2020-07-24] MEDS: 0.9 % Sodium Chloride 1,000 ML 999 ML IV (23:45)
--- NOTE | 2020-07-25 | ECG_ITS ---
Test Reason : RHYTHM CONVERSION Blood Pressure : / mmHG Vent. Rate : 069 BPM Atrial Rate : 069 BPM P-R Int : 190 ms QRS Dur : 086 ms QT Int : 384 ms P-R-T Axes : 009 004 018 degrees QTc Int : 411 ms Normal sinus rhythm Normal ECG When compared with ECG of 24-JUL-2020 21:55, Sinus rhythm has replaced Atrial fibrillation Vent. rate has decreased BY 51 BPM Referred By: Trey Meza Electronically Signed By:ANGELO GOMEZ MD
--- NOTE | 2020-07-25 | ECG_ITS ---
Test Reason : AFIB Blood Pressure : / mmHG Vent. Rate : 120 BPM Atrial Rate : 150 BPM P-R Int : 000 ms QRS Dur : 092 ms QT Int : 342 ms P-R-T Axes : 000 007 043 degrees QTc Int : 483 ms Atrial fibrillation with rapid ventricular response Abnormal ECG When compared with ECG of 02-MAR-2020 14:12, Atrial fibrillation has replaced Sinus rhythm Referred By: Trey Meza Electronically Signed By:ANGELO GOMEZ MD
[2020-07-25 00:07] VITALS: BP 95/59
[2020-07-25 00:47] VITALS: BP 101/58; PULSE 83; RESP 16
[2020-07-25 02:11] VITALS: BP 104/50; PULSE 64; RESP 16; O2SAT 96
[2020-07-25 02:57] VITALS: BP 106/71; PULSE 64; RESP 20; O2SAT 97
== END 2020-07-25 03:00 | disposition home or self-care (01) ==
PROVIDERS: Emergency Provider Emergency Medicine Emergency Medical Services; PCP Family Medicine
DX: I48.20 Chronic atrial fibrillation, unspecified (principal); I10 Essential (primary) hypertension; I48.0 Paroxysmal atrial fibrillation
CPT/HCPCS: 36415; 71045; 80053; 84484; 85025; 85610; 85730; 93005; 96360; 96374; 99284; 99285

== ENCOUNTER → 2020-07-27 20:25 | Outpatient (REF) | payer OTHER, SELFPAY | LOC: HO.SL 20:25 | PROVIDERS: PCP Family Medicine; Visit Provider Psychiatry & Neurology Neurology | DX: G47.33 Obstructive sleep apnea (adult) (pediatric) (principal); I10 Essential (primary) hypertension; I48.0 Paroxysmal atrial fibrillation | CPT/HCPCS: 95811 ==

== ENCOUNTER → 2020-08-02 14:06 | Outpatient (BNVA) | payer OTHER, SELFPAY | PROVIDERS: PCP Family Medicine; Visit Provider Internal Medicine | DX: I48.0 Paroxysmal atrial fibrillation (principal); I10 Essential (primary) hypertension; E66.01 Morbid (severe) obesity due to excess calories; G47.33 Obstructive sleep apnea (adult) (pediatric) | CPT/HCPCS: 93005 ==

== ENCOUNTER → 2020-09-07 08:55 | Outpatient (BNVA) | payer OTHER, SELFPAY | PROVIDERS: PCP Family Medicine; Referring Provider Internal Medicine; Visit Provider Psychiatry & Neurology Neurology ==

== ENCOUNTER → 2020-11-08 14:17 | Outpatient (BNVA) | payer OTHER, SELFPAY | PROVIDERS: PCP Family Medicine; Visit Provider Internal Medicine ==

== ENCOUNTER → 2021-01-11 11:31 | Outpatient (BNVA) | payer OTHER, SELFPAY | PROVIDERS: PCP Family Medicine; Visit Provider Psychiatry & Neurology Neurology ==

== ENCOUNTER → 2021-01-24 13:17 | Outpatient (REF) | payer OTHER, SELFPAY | LOC: HO.SL 13:17 | PROVIDERS: PCP Family Medicine; Visit Provider Psychiatry & Neurology Neurology | DX: G47.33 Obstructive sleep apnea (adult) (pediatric) (principal); G47.31 Primary central sleep apnea; E66.01 Morbid (severe) obesity due to excess calories | CPT/HCPCS: 95806 ==

== ENCOUNTER 2021-01-28 08:51 | Outpatient (REF) | payer OTHER, SELFPAY ==
[2021-01-28 10:29] LABS: Estimated Average Glucose 126 mg/dL; Hemoglobin A1C 154.6319 umol/L
[2021-01-28 10:35] LABS: Creatinine Urine 206.02 mg/dL; Microalbum/Creatinine Ratio Ur 6.3 ug/mg cr
[2021-01-28 10:36] LABS: Anion Gap 10 (12-20); Blood Urea Nitrogen 16 mg/dL (9-16); Carbon Dioxide 31 mmol/L (22-29); Chloride 102 mmol/L (96-108); Cholesterol 151 mg/dL; Estimated Glomerular Filt Rate > 60; Glucose Fasting 108 mg/dL (60-99); HDL Cholesterol 49 mg/dL; LDL Cholesterol Calculated 88 mg/dl; Potassium 4.3 mmol/L (3.3-5.1); Sodium 139 mmol/L (135-145); Triglycerides 71 mg/dL
== END 2021-01-28 08:52 | disposition home or self-care (01) ==
LOC: HO.10HDL 08:51
PROVIDERS: Visit Provider Family Medicine
DX: I10 Essential (primary) hypertension (principal); E78.00 Pure hypercholesterolemia, unspecified; R73.9 Hyperglycemia, unspecified
CPT/HCPCS: 36415; 80051; 80061; 82043; 82565; 82947; 83036; 84520

== ENCOUNTER 2021-05-13 07:34 | Day surgery (SDC) | payer OTHER, SELFPAY ==
[2021-05-06 14:09] VITALS: BMI 36.1
--- NOTE | 2021-05-12 10:41 | P.CONAN_ITS ---
Documented by User: Claire Everett NP 05/12/21 10:51 HPI - Anesthesia Eval Consult details Narrative: 56yo M for Colonoscopy Eliquis for afib Methadone daily *reports allergy to fentanyl* PMFSH Active Problems Active Problems: All Active Problems (Updated 05/06/21 @ 14:12 by Preeti Webster RN) Obstructive sleep apnea (Acute) Central sleep apnea (Acute) Morbid obesity (Acute) Essential hypertension (Acute) PAF (paroxysmal atrial fibrillation) (Acute) Past Medical History Medical History Chronic pain COVID-19 vaccine series completed Essential hypertension HTN (hypertension) Lumbar disc disease Morbid obesity PAF (paroxysmal atrial fibrillation) Sleep apnea Family History Family History Father No problems noted. Mother Heart disease Maternal Uncle No problems noted. Surgical History Surgical History History of elbow surgery History of knee surgery Hx of foot surgery Social History Social History Household Members: Significant Other and Children Are you a primary hearing healthcare practitioner to a significant other at home: No Do you presently have visiting nurse or other home services: No Alcohol intake: never Patient Tobacco Use Status: Never used Tobacco Use of substances other than those prescribed or required for medical reasons: No Substance Use Type Other:: taking methadone for pain control (back)-has never used illicit drugs Have you been hit, kicked, punched, or otherwise hurt by someone within the past year? If so, by whom?: No Are you DNR?: No Advance Directives: No Advance Directives Information Provided: Yes Advance Directives on File: No Eating poorly because of decreased appetite: No Nutrition Risks: No Nutritional Risk Current occupational status: employed Meds Allergies Allergy/AdvReac Type Severity Reaction Status Date / Time fentanyl [FENTANYL] Allergy Severe VERY Verified 05/13/21 07:44 SHALLOW BREATHING W/LARGE DOSES baclofen [BACLOFEN] AdvReac Intermediate HEADACHE Verified 05/13/21 07:44 naproxen [NAPROXEN] AdvReac Mild HEADACHE Verified 05/13/21 07:44 Home Medications Medication Instructions Recorded Confirmed Last Taken Type methadone 10 mg tablet 30 mg PO DAILY@1700 03/02/20 05/06/21 Unknown History amlodipine 10 mg-benazepril 20 mg 1 cap PO DAILY 05/25/20 05/06/21 Unknown History capsule metoprolol succinate 50 mg 50 mg PO BID tab 05/25/20 05/06/21 05/13/21 06:30 History tablet,extended release 24 hr apixaban 5 mg tablet 5 mg PO BID 08/02/20 05/06/21 05/09/21 History sildenafil 100 mg tablet 100 mg PO DAILY PRN 08/02/20 05/06/21 Unknown History Exam Exam Date and Time: May 12, 2021 1041 Height,Weight and Vital Signs: Height 6 ft 1 in Weight 124.284 kg Pertinent Lab Results Pertinent Lab Results: Laboratory Tests 07/24/20 01/28/21 22:10 09:00 WBC 7.5 Hgb 14.7 Hct 44.2 Plt Count 226 Sodium 139 Potassium 4.3 Chloride 102 Carbon Dioxide 31 H BUN 16 Creatinine 0.88 Assessment and Plan Assessment Anesthesia Assessment: Chart Reviewed Documented by User: Leny Maria MD 05/13/21 08:59 HPI - Anesthesia Eval Consult details Narrative: 56yo M for Colonoscopy Eliquis for afib. Last dose 05/09/21 Methadone daily *reports allergy to fentanyl* PMFSH Active Problems Active Problems: All Active Problems (Updated 05/06/21 @ 14:12 by Preeti Webster, AYLIN) Obstructive sleep apnea (Acute). Cannot tolerate CPAP machine so does not use Central sleep apnea (Acute) Morbid obesity (Acute) Essential hypertension (Acute) PAF (paroxysmal atrial fibrillation) (Acute) Past Medical History Medical History Chronic pain COVID-19 vaccine series completed Essential hypertension HTN (hypertension) Lumbar disc disease Morbid obesity PAF (paroxysmal atrial fibrillation) Sleep apnea Family History Family History Father No problems noted. Mother Heart disease Maternal Uncle No problems noted. Family history of problems with anesthesia: No Surgical History Surgical History History of elbow surgery History of knee surgery Hx of foot surgery History of Problems with Anesthesia: No Social History Social History Household Members: Significant Other and Children Are you a primary hearing healthcare practitioner to a significant other at home: No Do you presently have visiting nurse or other home services: No Alcohol intake: never Patient Tobacco Use Status: Never used Tobacco Use of substances other than those prescribed or required for medical reasons: No Substance Use Type Other:: taking methadone for pain control (back)-has never used illicit drugs Have you been hit, kicked, punched, or otherwise hurt by someone within the past year? If so, by whom?: No Are you DNR?: No Advance Directives: No Advance Directives Information Provided: Yes Advance Directives on File: No Eating poorly because of decreased appetite: No Nutrition Risks: No Nutritional Risk Current occupational status: employed Meds Allergies Allergy/AdvReac Type Severity Reaction Status Date / Time fentanyl [FENTANYL] Allergy Severe VERY Verified 05/13/21 07:44 SHALLOW BREATHING W/LARGE DOSES baclofen [BACLOFEN] AdvReac Intermediate HEADACHE Verified 05/13/21 07:44 naproxen [NAPROXEN] AdvReac Mild HEADACHE Verified 05/13/21 07:44 Home Medications Medication Instructions Recorded Confirmed Last Taken Type methadone 10 mg tablet 30 mg PO DAILY@1700 03/02/20 05/06/21 Unknown History amlodipine 10 mg-benazepril 20 mg 1 cap PO DAILY 05/25/20 05/06/21 Unknown History capsule metoprolol succinate 50 mg 50 mg PO BID tab 05/25/20 05/06/21 05/13/21 06:30 History tablet,extended release 24 hr apixaban 5 mg tablet 5 mg PO BID 08/02/20 05/06/21 05/09/21 History sildenafil 100 mg tablet 100 mg PO DAILY PRN 08/02/20 05/06/21 Unknown History Exam Height,Weight and Vital Signs: Height 6 ft 1 in Weight 124.284 kg Vital Signs Temp Pulse Resp BP Pulse Ox 05/13/21 07:57 98.6 F 65 16 156/55 H 96 Airway Mallampati Class: II TM Dist: >3cm Neck ROM: Full Loose/Missing/Broken Teeth: No Heart: RRR Lungs: CTAB Assessment and Plan Assessment Anesthesia Assessment: Anesthesia Plan Discussed Final Anesthetic Review Family History of Problems with Anesthesia: No History of Problems with Anesthesia: No NPO: Yes ASA Class: III Final Preanesthetic Review: No Changes in Pt Med Stat, Meds/Allgs Chart Reviewed, Consent Obtained/Reviewed and Anes Risks/Benef Reviewed Patient Risk: Intermediate Procedure Risk: Low Assessment/Block/Sedation in SS: Assess/Block/Sedation-SS Anesthetic Plan Anesthetic Plan: MAC: Disposition: Standard PACU
[2021-05-13 07:57] VITALS: BP 156/55; PULSE 65; RESP 16; TEMP 37; O2SAT 96
[2021-05-13] MEDS: Lactated Ringers 1,000 ML 100 ML IVCONT (08:06)
[2021-05-13 09:50] VITALS: BP 130/47; PULSE 60; RESP 16; TEMP 36.6; O2SAT 95
--- NOTE | 2021-05-13 09:52 | P.BOP_ITS ---
Brief Operative Note Date of Service: 05/13/21 Pre-op diagnosis: Screening Post-op diagnosis: other (Cecal polyp) Procedure: Colonoscopy to the cecum with hot snare polypectomy and placement of 2 Resolution clips Surgeon: Jermaine Kauffman Anesthesia: MAC Was an Elevator Constructor Supervisor used for this Procedure?: No Estimated blood loss (mL): 1.0 Pathology: other (A. Cecal polyp) Condition: stable Disposition: PACU
[2021-05-13 10:05] VITALS: BP 138/69; PULSE 55; RESP 20; TEMP 36.8; O2SAT 97
--- NOTE | 2021-05-13 10:13 | OP_ITS ---
SURGEON: Jermaine Kauffman MD INDICATIONS: The patient presents for evaluation of colorectal cancer screening. Full consent has been obtained from him for this, including risks of bleeding and perforation. PREOPERATIVE DIAGNOSIS: Colorectal cancer screening. POSTOPERATIVE DIAGNOSIS: PROCEDURE PERFORMED: Colonoscopy to the cecum and terminal ileum with hot snare polypectomy and placement of 2 Resolution clips. ESTIMATED BLOOD LOSS: COMPLICATIONS: ANESTHESIA: Monitored anesthesia care. ASSISTANTS: SPECIMENS: POSTOPERATIVE DIAGNOSES: Colorectal cancer screening, cecal polyp, diverticulosis, and internal hemorrhoids. DESCRIPTION OF PROCEDURE: The patient was placed in the left lateral decubitus position. The digital rectal exam revealed no abnormalities. The Olympus video pediatric colonoscope was entered into the rectum and advanced easily to the cecum. Once in the cecum, I did identify cecal pouch with appendiceal orifice and a normal-appearing ileocecal valve. The terminal ileum was cannulated and appeared normal. The scope was withdrawn back in the colon. The entire cecum was well visualized. Just beneath the appendiceal orifice was an approximately 10-12 mm slightly raised polyp that appeared to be consistent with a possible serrated polyp. This was removed with a hot snare polypectomy and recovered by suction. The polypectomy site appeared clean, without any sign of residual polyp nor bleeding. Two clips were applied with good deployment and good hemostasis. The remainder of the cecum appeared normal. The scope was then slowly withdrawn assessing all mucosal surfaces carefully. For the most part, preparation was very good throughout the colon, although there were some areas of liquid and solid stool, which were irrigated and removed as best as possible. I did not visualize any other polyps, colitis, or angiodysplasias. There was a mild amount of sigmoid diverticulosis. In the rectum, the scope was retroflexed visualizing internal hemorrhoids. The scope was straightened and withdrawn from the patient. He tolerated the procedure well and was returned to the recovery area in stable condition. IMPRESSION: 1. Cecal polyp, status post hot snare polypectomy and placement of 2 Resolution clips. 2. Diverticulosis. 3. Internal hemorrhoids. PLAN: The results of the pathology will be checked. 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 He was advised to go back on his Eliquis tomorrow. I would recommend repeat colonoscopy within 5 years for screening given the somewhat limited prep and the finding of the polyp. MD TOPHER Michaels/KESHA / [id number]
== END 2021-05-13 10:35 | disposition home or self-care (01) ==
PROVIDERS: PCP Family Medicine; Visit Provider Internal Medicine
PROC: 0DJD8ZZ Inspection of Lower Intestinal Tract, Via Natural or Artificial Opening Endoscopic (ICD-10-PCS; CPT 45378; principal; 2021-05-13 08:30)
DX: Z12.11 Encounter for screening for malignant neoplasm of colon (principal); K63.5 Polyp of colon; K57.30 Diverticulosis of large intestine without perforation or abscess without bleeding; K64.8 Other hemorrhoids; G47.33 Obstructive sleep apnea (adult) (pediatric); I10 Essential (primary) hypertension; I48.0 Paroxysmal atrial fibrillation; E66.01 Morbid (severe) obesity due to excess calories; Z68.36 Body mass index [BMI] 36.0-36.9, adult; Z79.01 Long term (current) use of anticoagulants; Z79.899 Other long term (current) drug therapy; Z88.8 Allergy status to other drugs, medicaments and biological substances
CPT/HCPCS: 45385; 88305; J2250

== ENCOUNTER 2021-09-02 10:49 | Outpatient (REF) | payer OTHER, SELFPAY ==
[2021-09-02 11:34] LABS: Estimated Average Glucose 128 mg/dL; Hemoglobin A1c % 6.1 %
[2021-09-02 12:25] LABS: Anion Gap 12 (12-20); Blood Urea Nitrogen 14 mg/dL (9-16); Carbon Dioxide 30 mmol/L (22-29); Chloride 101 mmol/L (96-108); Estimated Glomerular Filt Rate > 60; Glucose Fasting 115 mg/dL (60-99); Potassium 4.4 mmol/L (3.3-5.1); Sodium 139 mmol/L (135-145)
== END 2021-09-02 10:50 | disposition home or self-care (01) ==
LOC: HO.LAB 10:49
PROVIDERS: PCP Family Medicine; Visit Provider Family Medicine
DX: I10 Essential (primary) hypertension (principal); R79.89 Other specified abnormal findings of blood chemistry
CPT/HCPCS: 36415; 80051; 82565; 82947; 83036; 84520

== ENCOUNTER 2022-02-13 09:44 | Outpatient (REF) | payer OTHER, SELFPAY ==
--- NOTE | ~2022-02-13 | XR_ITS ---
EXAMINATION: XR CHEST CLINICAL INFORMATION: Shortness of breath COMPARISON: Previous chest x-ray July 2020 TECHNIQUE: 2 views of the chest were obtained. FINDINGS: No significant abnormality is noted involving the heart, lungs, mediastinum, bony thorax or soft tissues. There are degenerative changes of the spine. XR/XR chest 2V IMPRESSION: Unremarkable examination.
[2022-02-13 10:14] LABS: MANUAL DIFF FLAG NO
--- NOTE | 2022-02-13 10:16 | ECG_ITS ---
Test Reason : Shortness of breath Blood Pressure : / mmHG Vent. Rate : 066 BPM Atrial Rate : 066 BPM P-R Int : 194 ms QRS Dur : 086 ms QT Int : 398 ms P-R-T Axes : 025 007 016 degrees QTc Int : 417 ms Normal sinus rhythm Normal ECG When compared with ECG of 24-JUL-2020 23:39, No significant change was found Referred By: Prieto Alvarado Electronically Signed By:AMINAH MAGANA MD
[2022-02-13 10:55] LABS: Basophils Percent Auto 0.4 % (0-2); Eosinophils Absolute Auto 0.1 X10*3/uL (0.0-0.4); Eosinophils Percent Auto 0.9 % (0-4); Hematocrit 37.8 % (42.0-52.0); Hemoglobin 12.4 g/dl (14.0-18.0); Imm Gran Abs Auto 0.02 X10*3/uL (0.00-0.03); Imm Gran Pct Auto 0.4 % (0.0-0.4); Lymphocytes Absolute Auto 1.4 X10*3/uL (1.2-4.9); Lymphocytes Percent Auto 25.9 % (20-40); Mean Corpuscular HGB Conc 32.8 g/dl (31.0-36.0); Mean Corpuscular Hemoglobin 29.6 pg (27.0-33.0); Mean Corpuscular Volume 90.2 fL (80.0-98.0); Mean Platelet Volume 9.2 fL (9.4-12.4); Monocytes Absolute Auto 0.5 X10*3/uL (0.1-1.2); Monocytes Percent Auto 9.3 % (2-11); Neutrophils Absolute Auto 3.4 x10*3/uL (2.0-8.3); Neutrophils Percent Auto 63.1 % (45-73); Platelet Count 195 X10*3/uL (160-400); Red Blood Count 4.19 X10*6/uL (4.60-5.80); Red Cell Distribution Width 13.6 % (11.0-16.0); White Blood Count 5.4 X10*3/uL (4.8-10.8)
[2022-02-13 11:42] LABS: Free T4 (Free Thyroxine) 1.13 ng/dL (0.71-1.85)
[2022-02-13 11:43] LABS: Anion Gap 15 (12-20); Blood Urea Nitrogen 28 mg/dL (9-16); Carbon Dioxide 26 mmol/L (22-29); Chloride 104 mmol/L (96-108); Estimated Glomerular Filt Rate > 60; Potassium 5.2 mmol/L (3.3-5.1); Sodium 140 mmol/L (135-145)
== END 2022-02-13 09:45 | disposition home or self-care (01) ==
LOC: HO.LAB 09:44
PROVIDERS: Absent Provider Internal Medicine; PCP Family Medicine; Visit Provider Family Medicine
DX: I10 Essential (primary) hypertension (principal); I48.0 Paroxysmal atrial fibrillation; R06.02 Shortness of breath
CPT/HCPCS: 36415; 71046; 80051; 82565; 84439; 84520; 85025; 93005

== ENCOUNTER → 2022-03-09 13:56 | Outpatient (REF) | payer OTHER, SELFPAY ==
--- NOTE | 2022-03-09 13:55 | HM_ITS ---
Conclusion: 1. Patient was monitored for total period of 13 days and 19 hours 2. Baseline was normal sinus rhythm with average heart of 71 beats per minute 3. Very rare PACs and PVCs noted 4. No significant pauses or bradycardia noted 5. No patient reported events MTDD
== END ==
LOC: HO.CARD 13:56
PROVIDERS: Visit Provider Internal Medicine
DX: I48.0 Paroxysmal atrial fibrillation (principal)
CPT/HCPCS: 93246

== ENCOUNTER → 2022-03-14 13:02 | Outpatient (REF) | payer OTHER, SELFPAY ==
--- NOTE | 2022-03-14 13:04 | CA_ITS ---
Transthoracic Echocardiogram Patient (Last, First, Middle): Leonardo Howe A Gender: Male Date of : 1965 Age: 57 Procedure Date: 03/14/2022 Procedure Type: Transthoracic Echocardiogram Location: OP Height: 187.96 cm Weight: 113.4 kg BSA: 2.39 m2 Heart Rate: bpm BP: 120 / 78 mmHg Shoe Lay Out Planner: HAO Referring MD: Russell Montoya MD Symptoms: I48.0 - Paroxysmal atrial fibrillation Study Quality: Technically Difficult, contrast used ECG Rhythm: Sinus Conclusions: - The left ventricular systolic function is normal. The visually estimated ejection fraction is between 55-60%. - Mildly increased right ventricular cavity size. - No obvious valvular pathology seen on this study. Findings Procedure Information Contrast agent, definity, is being given per protocol without apparent complications. Left Ventricle Normal left ventricular cavity size. There is normal left ventricular wall thickness. The left ventricular systolic function is normal. The visually estimated ejection fraction is between 55-60%. There is no evidence of regional wall motion abnormalities. Diastolic function is normal for age. Right Ventricle Mildly increased right ventricular cavity size. There is normal right ventricular systolic function. Atria Both atria are normal in size. Aortic Valve There is a normal trileaflet aortic valve. There is no aortic valve stenosis. There is no aortic valve regurgitation. Mitral Valve The mitral valve appears normal. There is mild anterior mitral leaflet thickening. There is no mitral valve regurgitation. There is no mitral valve stenosis. Pulmonic Valve The pulmonic valve is likely normal. Tricuspid Valve There is trace tricuspid valve regurgitation. Tricuspid regurgitation envelope is inadequate for calculation of right ventricular systolic pressure. Great Vessels The asc aorta is normal in size. Venous The inferior vena cava is normal in size and collapses greater than 50% with inspiration. Pericardium/Pleural There is no evidence of pericardial effusion. Prior Study Comparison No significant change compared to prior study dated: 03/24/2020. Recommendations, Care & Conclusions No obvious valvular pathology seen on this study. Measurements 2D Linear Measurements IVSd: 1.06 0.6-0.9/0.6-1.0 cm LVIDd: 5.08 3.9-5.3/4.2-5.9 cm LVIDd Index: 2.13 2.4-3.2/2.2-3.1 cm/m2 LVIDs: 3.72 2.0-3.6 cm LVPWd: 0.87 0.7-1.1 cm LA Diam: 2.90 2.7-3.8/3.0-4.0 cm LAIDs Index: 1.21 1.5-2.3 cm/m2 LV Mass: 221.60 67-162/88-224 g LV Mass Index: 92.72 43-95/49-115 g/m2 LVOT Diam: 2.20 3.0+(-)1.3 cm 2D Systolic Function EF 4C: 59.20 >55% EF 2C: 66.90 >55% EF BiP: 62.00 >55% Mitral Valve MV Pk E: 0.61 MV PK A: 0.73 MV Decel Time: 265.00 E/A: 0.80 E'Lateral: 8.92 E'Medial: 7.83 E/E' Med: 7.80 E/E' Lat: 6.90 PHT: 78.00 MVA PHT: 2.82 Decel [place]: 2.31 Aortic Valve AoV Pk Syl[place]: 1.23 AoV Mn Syl[place]: 0.82 AoV VTI: 0.22 AoV Pk Grad: 6.00 Aov Mn Grad: 3.00 MARLA Cont.VTI: 2.95 LVOT LVOT Pk [place]: 0.97 LVOT Mn [place]: 0.63 LVOT VTI: 0.17 LVOT Pk Grad: 4.00 LVOT Mn Grad: 2.00 LVOT Diam: 2.20 LVOT Area: 3.80 Diastolic Function MV Pk E: 0.61 MV Pk A: 0.73 E/A: 0.80 E'Medial: 7.83 E/E' Med: 7.80 E' Laterial: 8.92 E/E' Lat: 6.90 Right Ventricle TAPSE (mm): 22.40 TVS' Sylvain: 13.40 Tricuspid Valve RA Press: 8.00 Great Vessels Aorta Sinus of Valsalva: 3.68 2.0-3.[address] [place]: 2.93 1.7-3.4 cm Ao Asc: 3.10 2.1-3.4 cm Updated in Other Vendor System with Status of Final Russell Montoya MD electronically signed on 03/16/2022 3:55:44 PM with status of Final
== END ==
LOC: HO.CARD 13:02
PROVIDERS: Visit Provider Internal Medicine
DX: I48.0 Paroxysmal atrial fibrillation (principal); R06.02 Shortness of breath
CPT/HCPCS: 93306; Q9957

== ENCOUNTER → 2022-03-23 10:26 | Outpatient (BNVA) | payer OTHER, SELFPAY | PROVIDERS: PCP Family Medicine; Referring Provider Family Medicine; Visit Provider Internal Medicine | DX: I48.0 Paroxysmal atrial fibrillation (principal) ==

== ENCOUNTER 2022-05-02 13:51 | Outpatient (REF) | payer OTHER, SELFPAY ==
[2022-05-02 14:04] LABS: MANUAL DIFF FLAG NO
[2022-05-02 14:28] LABS: Basophils Percent Auto 0.4 % (0-2); Eosinophils Absolute Auto 0.1 X10*3/uL (0.0-0.4); Eosinophils Percent Auto 1.3 % (0-4); Hematocrit 41.2 % (42.0-52.0); Hemoglobin 13.5 g/dl (14.0-18.0); Imm Gran Abs Auto 0.01 X10*3/uL (0.00-0.03); Imm Gran Pct Auto 0.2 % (0.0-0.4); Lymphocytes Absolute Auto 1.6 X10*3/uL (1.2-4.9); Lymphocytes Percent Auto 30.1 % (20-40); Mean Corpuscular HGB Conc 32.8 g/dl (31.0-36.0); Mean Corpuscular Hemoglobin 29.9 pg (27.0-33.0); Mean Corpuscular Volume 91.2 fL (80.0-98.0); Mean Platelet Volume 8.7 fL (9.4-12.4); Monocytes Absolute Auto 0.4 X10*3/uL (0.1-1.2); Monocytes Percent Auto 7.8 % (2-11); Neutrophils Absolute Auto 3.3 x10*3/uL (2.0-8.3); Neutrophils Percent Auto 60.2 % (45-73); Platelet Count 207 X10*3/uL (160-400); Red Blood Count 4.52 X10*6/uL (4.60-5.80); White Blood Count 5.4 X10*3/uL (4.8-10.8)
[2022-05-02 14:58] LABS: Iron 93 mcg/dL (45-160); Percent Iron Saturation 30 % (15-50); Total Iron Binding Capacity 309 mcg/dL (228-428); Unsaturated Iron Binding 216 ug/dL
[2022-05-02 15:26] LABS: Ferritin 203 ng/mL (20-250); Folate 12.3 ng/mL (> or = 4.0); Vitamin B12 254 pg/mL (200-900)
== END 2022-05-02 13:52 | disposition home or self-care (01) ==
LOC: HO.LAB 13:51
PROVIDERS: PCP Family Medicine; Visit Provider Family Medicine
DX: D64.9 Anemia, unspecified (principal)
CPT/HCPCS: 36415; 82607; 82728; 82746; 83540; 85025

== ENCOUNTER → 2022-07-25 11:25 | Outpatient (BNVA) | payer OTHER, SELFPAY | PROVIDERS: PCP Family Medicine; Visit Provider Nurse Practitioner Family | DX: Z13.89 Encounter for screening for other disorder (principal) ==

== ENCOUNTER → 2022-09-27 12:43 | Outpatient (BNVA) | payer OTHER, SELFPAY | PROVIDERS: PCP Family Medicine; Referring Provider Family Medicine; Visit Provider Internal Medicine ==

== ENCOUNTER 2022-10-05 15:09 | Outpatient (REF) | payer OTHER, SELFPAY ==
[2022-10-05 16:57] LABS: Anion Gap 14 (12-20); Blood Urea Nitrogen 15 mg/dL (9-16); Carbon Dioxide 29 mmol/L (22-29); Chloride 101 mmol/L (96-108); Estimated Glomerular Filt Rate > 60; Potassium 5.1 mmol/L (3.3-5.1); Sodium 139 mmol/L (135-145)
== END 2022-10-05 15:10 | disposition home or self-care (01) ==
LOC: HO.LAB 15:09
PROVIDERS: PCP Family Medicine; Visit Provider Family Medicine
DX: I10 Essential (primary) hypertension (principal)
CPT/HCPCS: 36415; 80051; 82565; 84520

== ENCOUNTER 2023-05-23 12:21 | Outpatient (REF) | payer OTHER, SELFPAY ==
[2023-05-23 12:56] LABS: Estimated Average Glucose 120 mg/dL; Hemoglobin A1c % 5.8 % (<6.0)
[2023-05-23 13:12] LABS: Anion Gap 14 (12-20); Blood Urea Nitrogen 23 mg/dL (9-16); Carbon Dioxide 29 mmol/L (22-29); Chloride 102 mmol/L (96-108); Estimated Glomerular Filt Rate > 60; Glucose Fasting 121 mg/dL (60-99); Potassium 5.2 mmol/L (3.3-5.1); Sodium 140 mmol/L (135-145)
== END 2023-05-23 12:22 | disposition home or self-care (01) ==
LOC: HO.LAB 12:21
PROVIDERS: PCP Family Medicine; Visit Provider Family Medicine
DX: I10 Essential (primary) hypertension (principal); R73.9 Hyperglycemia, unspecified
CPT/HCPCS: 36415; 80051; 82565; 82947; 83036; 84520

== ENCOUNTER 2023-09-27 12:39 | Outpatient (AMB) | payer OTHER, SELFPAY ==
[2023-09-27 12:48] VITALS: BP 110/60; PULSE 77; BMI 34.7
--- NOTE | 2023-09-27 12:48 | MHC.OFFVIS ---
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: No Accompanied by: Self / Same As Patient Allergies fentanyl [FENTANYL] Allergy (Severe, Verified 09/27/22 12:51) VERY SHALLOW BREATHING W/LARGE DOSES baclofen [BACLOFEN] Adverse Reaction (Intermediate, Verified 09/27/22 12:51) HEADACHE naproxen [NAPROXEN] Adverse Reaction (Mild, Verified 09/27/22 12:51) HEADACHE Medication List - Last Reconciled 09/27/23 by Russell Montoya MD amlodipine-benazepril 10-20 mg 1 cap PO DAILY apixaban 5 mg PO BID atomoxetine 80 mg PO QAM methadone 30 mg PO DAILY@1700 metoprolol succinate ER 100 mg PO BEDTIME sildenafil 100 mg PO DAILY PRN HPI Comments Details: Leonardo returns for follow-up regarding atrial fibrillation. 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 He is maintained on beta-blockers. Also on Eliquis. He is morbidly obese but has lost more than 50 lb in weight by himself. No known cardiomyopathy. Overall, feels good. On extremely humid days, he states he can feel a bit short of breath with activity but recovered very quickly. No clear-cut angina. Otherwise, getting along fine. [facility] Medical History (Updated 02/14/22 @ 10:52 by Russell Montoya MD) COVID-19 vaccine series completed Lumbar disc disease Sleep apnea Morbid obesity Essential hypertension PAF (paroxysmal atrial fibrillation) Chronic pain HTN (hypertension) Surgical History Hx of foot surgery History of knee surgery History of elbow surgery Family History Father No problems noted. Mother Heart disease Maternal Uncle No problems noted. Social History Household Members: Significant Other and Children Are you a primary home care specialist to a significant other at home: No Do you presently have visiting nurse or other home services: No Alcohol intake: never Patient Tobacco Use Status: Never used Tobacco Current occupational status: employed Review of Systems Const Denies chills, Denies fatigue, Denies fever(s), Denies frequent falls, Denies weakness, Denies weight gain and Denies weight loss ENT Denies dizziness Card Denies chest pain, Denies leg edema, Denies lightheadedness, Denies palpitations, Denies dyspnea and Denies dyspnea on exertion Resp Denies cough, Denies dyspnea and Denies dyspnea on exertion GI Denies hematochezia Musc Denies abnormal gait, Denies muscle weakness, Denies numbness, Denies radiating pain into limb and Denies tingling Neuro Denies abnormal gait, Denies dizziness, Denies frequent falls, Denies numbness, Denies tingling and Denies weakness Endo Denies fatigue and Denies palpitations Physical Exam Vital Signs: Last Vital Signs Pulse 77 09/27/23 12:48 BP 110/60 09/27/23 12:48 BMI result Body Mass Index 34.7 Const General: comfortable and no acute distress Orientation/consciousness: patient oriented x3 HEENT Other: Unremarkable Head: Yes normal to inspection Neck Neck: Yes normal visual inspection Chest Chest palpation & inspection: normal inspection of the chest Resp Auscultation: clear to auscultation bilaterally Cardio Palpation: normal PMI Heart sounds: S1 normal heart sound present, S2 normal heart sound present, no gallops, no murmurs and no rubs GI Palpation (GI): Soft to palpation Back/Spine/Pelvis Other: unremarkable Skin General skin exam: no rashes or lesions noted Neuro General: patient oriented x3 Extrem General: Yes normal to inspection Psych Mental Status: mental status grossly normal Office Procedures EKG Details: EKG with sinus rhythm at 77/Min; no significant ST-T changes and otherwise unremarkable[place] [id number], Complete Assessment & Plan Assessment & Plan (1) PAF (paroxysmal atrial fibrillation): Code(s): I48.0 - Paroxysmal atrial fibrillation Category: Medical Plan: Stable. Continue beta-blockers. Due to low thromboembolic risk (CHADS2 VASc score of 1 for hypertension only), anticoagulation is considered optional, but he would prefer to stay on it. Echocardiogram with LVEF of 55-60%. Mild increase in right ventricular size and otherwise unremarkable. (2) Essential hypertension: Code(s): I10 - Essential (primary) hypertension Category: Medical Plan: On benazepril/amlodipine. Stable. (3) Morbid obesity: Code(s): E66.01 - Morbid (severe) obesity due to excess calories Category: Medical Plan: He has weighed more than 300 lb in the past but much less now. Still obese. Needs to lose more weight. (4) Obstructive sleep apnea: Code(s): G47.33 - Obstructive sleep apnea (adult) (pediatric) Category: Medical Plan: Sleep study shows severe sleep apnea. CPAP per sleep medicine. Coding Level of Care Code Est Pt Level 4 (66620) Diagnoses PAF (paroxysmal atrial fibrillation) I48.0 Essential hypertension I10 Morbid obesity E66.01 Obstructive sleep apnea G47.33 CPT Codes EKG - CPT: [id number], Complete ([id number])
== END 2023-09-27 13:10 | disposition home or self-care (01) ==
PROVIDERS: PCP Family Medicine; Visit Provider Internal Medicine
DX: I48.0 Paroxysmal atrial fibrillation (principal); I10 Essential (primary) hypertension; E66.01 Morbid (severe) obesity due to excess calories; G47.33 Obstructive sleep apnea (adult) (pediatric)
CPT/HCPCS: 93010; 99214

== ENCOUNTER → 2023-09-27 12:39 | Outpatient (BNVA) | payer OTHER, SELFPAY | PROVIDERS: PCP Family Medicine; Visit Provider Internal Medicine | DX: I48.0 Paroxysmal atrial fibrillation (principal); I10 Essential (primary) hypertension; G47.33 Obstructive sleep apnea (adult) (pediatric); E66.01 Morbid (severe) obesity due to excess calories; Z68.34 Body mass index [BMI] 34.0-34.9, adult; Z79.899 Other long term (current) drug therapy | CPT/HCPCS: 93005 ==

== ENCOUNTER 2023-12-06 07:56 | Outpatient (REF) | payer OTHER, SELFPAY ==
[2023-12-06 11:10] LABS: Estimated Average Glucose 123 mg/dL; Hemoglobin A1c % 5.9 % (<6.0)
[2023-12-06 11:19] LABS: Glucose Fasting 114 mg/dL (60-99)
[2023-12-13 14:04] LABS: Testosterone, Free 39.4 pg/mL (35.0-155.0); Testosterone, Total 315 ng/dL (250-1100)
== END 2023-12-06 07:57 | disposition home or self-care (01) ==
LOC: HO.10HDL 07:56
PROVIDERS: Visit Provider Family Medicine
DX: R73.9 Hyperglycemia, unspecified (principal); N52.9 Male erectile dysfunction, unspecified
CPT/HCPCS: 36415; 82947; 83036; 84402; 84403

== ENCOUNTER 2024-03-27 12:35 | Outpatient (AMB) | payer BC, SELFPAY ==
--- OUTSIDE RECORDS SUMMARY | 2024-03-27 12:36 | XMS_ITS | Patient Health Record ---
Author Organization [facility] Address [address] [place] [address] Care Team Providers Care Chip Mixer Name Role Phone Christiano LIM, Prieto Primary Care Provider Unavailab ayala Edward Kauffman [facility] [phone] ALLERGIES Allergen (clinical drug ingredient) Drug/Non Drug Allergy documented on EMR Reaction Allergy Type Onset Date Status fentanyl Fentanyl Unknown Drug Allergy Active baclofen Baclofen Unknown Drug Allergy Active REASON FOR REFERRAL No Information MEDICATIONS Medication SIG (Take, Route, Frequency, Duration) Notes Start Date End Date Status Methadone HCl 10 MG 30 mg Oral as directed Active amLODIPine Besy-Benazepril HCl 10-20 MG TAKE 1 CAPSULE BY MOUTH EVERY DAY DIRECTED Oral for 90 Active Eliquis 5 MG Oral for 30 Activ e Metoprolol Succinate ER 50 MG TAKE 1 TABLET BY MOUTH TWICE DAILY DIRECTED Oral for 90 Active IMMUNIZATIONS Vaccine Route Administration Date Status Comme nts Influenza Unknown 11/18/2020 Refused SOCIAL HISTORY Tobacco Use: Social History Observation Description Date Details (start date - stop date) Never Smoker NA - NA Sex Assigned At : Social History Observation Description Sex Assigned At Unknown Tobacco Use/Smoking Question Answer Notes Patient is a nonsmoker Alcohol Screen Question Answer Notes Did you have a drink containing alcohol in the p ast year? No Points 0 Interpretation Negative PROBLEMS Problem Type ICD Code Onset Dates Problem Status W/U Status Risk SNOMED Code Notes Problem Encounter for screening for malignant neoplasm of colon (Z12.11) Active confirmed 171322927 Problem Preprocedural examination (Z01.818) Active confirmed 342766132173339 Problem Diverticulosis of colon (K57.30) Active confirmed Diverticulosi s of colon (475968768) PLAN OF TREATMENT Future Test Test Name Order Date COLONOSCOPY 11/18/2020 Insurance Providers Payer Name Payer Address Payer Phone Subscriber Number Group Number Insured Name Patient Relationship to Insured Coverage Start Date Coverage End Date [facility] [address] [place] [place] [phone] [id number] ROBY RECIO Self - patient is the insured MEDICAL (GENERAL) HISTORY Medical History History ICD Code Afib - Dr. Montoya Hypertension Sleep apnea--has not been able to tolera te the CPAP Back pain--lumbar disc disease Denies IN,DM,CVA,Lung disease,renal dise ase Surgical History Surgery Date(Month/Year) Right elbow 2012 Left knee 2016 Left elbow 2017 Right big toe 2008
[2024-03-27 12:40] VITALS: BP 130/60; PULSE 68; BMI 35.0
--- NOTE | 2024-03-27 12:40 | MHC.OFFVIS ---
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: No Accompanied by: Self / Same As Patient Allergies fentanyl [FENTANYL] Allergy (Severe, Verified 12/12/23 11:19) VERY SHALLOW BREATHING W/LARGE DOSES baclofen [BACLOFEN] Adverse Reaction (Intermediate, Verified 12/12/23 11:19) HEADACHE naproxen [NAPROXEN] Adverse Reaction (Mild, Verified 12/12/23 11:19) HEADACHE Medication List - Last Reconciled 03/27/24 by Russell Montoya MD amlodipine-benazepril 10-20 mg 1 cap PO DAILY apixaban 5 mg PO BID atomoxetine 80 mg PO QAM methadone 30 mg PO DAILY@1700 metoprolol succinate ER 100 mg PO BEDTIME sildenafil 100 mg PO DAILY PRN HPI Comments Details: Leonardo returns for follow-up regarding atrial fibrillation. 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 He is maintained on beta-blockers. Also on Eliquis. He is morbidly obese but has lost more than 50 lb in weight by himself. No known cardiomyopathy. Overall, generally feels fine. Rare palpitations. No other specific symptoms. No angina or shortness of breath. He has obstructive sleep apnea but not using CPAP. [facility] Medical History COVID-19 vaccine series completed Lumbar disc disease Sleep apnea Morbid obesity Essential hypertension PAF (paroxysmal atrial fibrillation) Chronic pain HTN (hypertension) Surgical History Hx of foot surgery History of knee surgery History of elbow surgery Family History Father No problems noted. Mother Heart disease Maternal Uncle No problems noted. Social History Household Members: Significant Other and Children Are you a primary home care coordinator to a significant other at home: No Do you presently have visiting nurse or other home services: No Alcohol intake: never Patient Tobacco Use Status: Never used Tobacco Current occupational status: employed Review of Systems Const Denies chills, Denies fatigue, Denies fever(s), Denies frequent falls, Denies weakness, Denies weight gain and Denies weight loss ENT Denies dizziness Card Denies chest pain, Denies leg edema, Denies lightheadedness, Denies palpitations, Denies dyspnea and Denies dyspnea on exertion Resp Denies cough, Denies dyspnea and Denies dyspnea on exertion GI Denies hematochezia Musc Denies abnormal gait, Denies muscle weakness, Denies numbness, Denies radiating pain into limb and Denies tingling Neuro Denies abnormal gait, Denies dizziness, Denies frequent falls, Denies numbness, Denies tingling and Denies weakness Endo Denies fatigue and Denies palpitations Physical Exam Vital Signs: Last Vital Signs Pulse 68 03/27/24 12:40 BP 130/60 03/27/24 12:40 BMI result Body Mass Index 35.0 Const General: comfortable and no acute distress Orientation/consciousness: patient oriented x3 HEENT Other: Unremarkable Head: Yes normal to inspection Neck Neck: Yes normal visual inspection Chest Chest palpation & inspection: normal inspection of the chest Resp Auscultation: clear to auscultation bilaterally Cardio Palpation: normal PMI Heart sounds: S1 normal heart sound present, S2 normal heart sound present, no gallops, no murmurs and no rubs GI Palpation (GI): Soft to palpation Back/Spine/Pelvis Other: unremarkable Skin General skin exam: no rashes or lesions noted Neuro General: patient oriented x3 Extrem General: Yes normal to inspection Psych Mental Status: mental status grossly normal Assessment & Plan Assessment & Plan (1) PAF (paroxysmal atrial fibrillation): Code(s): I48.0 - Paroxysmal atrial fibrillation Category: Medical Plan: Stable. Continue beta-blockers. Due to low thromboembolic risk (CHADS2 VASc score of 1 for hypertension only), anticoagulation is considered optional, but he would prefer to stay on it. We discussed that today as well. Echocardiogram with LVEF of 55-60%. Mild increase in right ventricular size and otherwise unremarkable. Check Holter before next appointment. (2) Essential hypertension: Code(s): I10 - Essential (primary) hypertension Category: Medical Plan: On benazepril/amlodipine. Stable. (3) Morbid obesity: Code(s): E66.01 - Morbid (severe) obesity due to excess calories Category: Medical Plan: He has weighed more than 300 lb in the past but much less now. Still obese. Needs to lose more weight. (4) Obstructive sleep apnea: Code(s): G47.33 - Obstructive sleep apnea (adult) (pediatric) Category: Medical Plan: Sleep study shows severe sleep apnea. Not using CPAP. Importance of compliance discussed especially in relationship to cardiac arrhythmias. Plan Advised him to contact us PCP for updated labs. He states he will. Orders: Orders ECG 3 day holter monitor 1 Year I48.0 - Paroxysmal atrial fibrillation Coding Level of Care Code Est Pt Level 4 (74465) Diagnoses PAF (paroxysmal atrial fibrillation) I48.0 Essential hypertension I10 Morbid obesity E66.01 Obstructive sleep apnea G47.33
== END 2024-03-27 12:59 | disposition home or self-care (01) ==
PROVIDERS: PCP Family Medicine; Visit Provider Internal Medicine
DX: I48.0 Paroxysmal atrial fibrillation (principal); I10 Essential (primary) hypertension; E66.01 Morbid (severe) obesity due to excess calories; G47.33 Obstructive sleep apnea (adult) (pediatric)
CPT/HCPCS: 99214

== ENCOUNTER → 2024-03-27 12:35 | Outpatient (BNVA) | payer OTHER, SELFPAY | PROVIDERS: PCP Family Medicine; Visit Provider Internal Medicine ==

== ENCOUNTER 2024-09-16 14:22 | Outpatient (REF) | payer BC, SELFPAY ==
[2024-09-16 14:35] LABS: MANUAL DIFF FLAG NO
[2024-09-16 15:24] LABS: Basophils Percent Auto 0.4 % (0-2); Eosinophils Percent Auto 0.6 % (0-4); Hematocrit 38.7 % (42.0-52.0); Hemoglobin 12.7 g/dl (14.0-18.0); Imm Gran Abs Auto 0.01 X10*3/uL (0.00-0.03); Imm Gran Pct Auto 0.2 % (0.0-0.4); Lymphocytes Absolute Auto 1.2 X10*3/uL (1.2-4.9); Lymphocytes Percent Auto 23.2 % (20-40); Mean Corpuscular HGB Conc 32.8 g/dl (31.0-36.0); Mean Corpuscular Hemoglobin 29.8 pg (27.0-33.0); Mean Corpuscular Volume 90.8 fL (80.0-98.0); Monocytes Absolute Auto 0.5 X10*3/uL (0.1-1.2); Monocytes Percent Auto 10.6 % (2-11); Neutrophils Absolute Auto 3.3 x10*3/uL (2.0-8.3); Platelet Count 213 X10*3/uL (160-400); Red Blood Count 4.26 X10*6/uL (4.60-5.80); Red Cell Distribution Width 13.5 % (11.0-16.0)
[2024-09-16 16:00] LABS: Anion Gap 12 (12-20); Blood Urea Nitrogen 24 mg/dL (9-16); Carbon Dioxide 29 mmol/L (22-29); Chloride 105 mmol/L (96-108); Estimated Glomerular Filt Rate 53; Sodium 141 mmol/L (135-145)
--- OUTSIDE RECORDS SUMMARY | 2024-09-16 16:42 | XMS_ITS | Patient Health Record ---
Author Organization [facility] Address [address] [place] [address] Care Team Providers Care Loft Worker Pile Driving Name Role Phone Christiano LIM, Prieto Primary Care Provider Unavailab ayala Edward Kauffman [facility] [phone] Allergies Allergen (clinical drug ingredient) Drug/Non Drug Allergy documented on EMR Reaction Allergy Type Onset Date Status fentanyl Fentanyl Unknown Drug Allergy Active baclofen Baclofen Unknown Drug Allergy Active Reason For Referral No Information Medications Medication SIG (Take, Route, Frequency, Duration) Notes [...] TWICE DAILY DIRECTED Oral for 90 Active Immunizations Vaccine Route Administration Date Status Comme nts Influenza Unknown 11/18/2020 Refused Social History Tobacco Use: Social History Observation Description Date Details (start date - stop date) Never Smoker NA - NA Tobacco Use/Smoking Question Answer Notes Patient is a nonsmoker Alcohol Screen Question Answer Notes Did you have a drink containing alcohol in the p ast year? No Points 0 Interpretation Negative Section Notes: Nonsmoker; no sig alcohol Problems Problem Type SNOMED Code ICD Code Onset Dates Problem Status W/U Status Risk Notes Problem [id number] Encounter for screening for malignant neoplasm of colon (Z12.11) Active confirmed Problem [id number] Preprocedural examination (Z01.818) Active confirmed Problem Diverticulosis of colon (742385453) Diverticulosis of colon (K57.30) Active confirmed Plan Of Treatment Future Test Test Name Order Date COLONOSCOPY 11/18/2020 Insurance Providers Payer Name Payer Address Payer Phone Subscriber Number Group Number Insured Name Patient Relationship to Insured Coverage Start Date Coverage End Date [facility] [address] [place] [phone] [id number] ROBY RECIO Self - patient is the insured Medical (General) History Medical History History ICD Code Afib - Dr. Montoya Hypertension Sleep apnea--has not been able to tolera te the CPAP Back pain--lumbar disc disease Denies [place],DM,CVA,Lung disease,renal dise ase Surgical History Surgery Date(Month/Year) Right elbow 2012 Left knee 2016 Left elbow 2018 Right big toe 2008
== END 2024-09-16 14:23 | disposition home or self-care (01) ==
LOC: HO.LAB 14:22
PROVIDERS: PCP Family Medicine; Visit Provider Family Medicine
DX: I10 Essential (primary) hypertension (principal); I48.0 Paroxysmal atrial fibrillation; Z79.01 Long term (current) use of anticoagulants
CPT/HCPCS: 36415; 80051; 82565; 84520; 85025

== ENCOUNTER 2024-10-06 09:49 | Outpatient (AMB) | payer BC, SELFPAY ==
--- NOTE | 2024-10-06 08:47 | A.OFFPC_ITS ---
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: No Accompanied by: Self / Same As Patient Allergies fentanyl (FENTANYL) Allergy (Severe, Verified 10/06/24 15:06) VERY SHALLOW BREATHING W/LARGE DOSES baclofen (BACLOFEN) Adverse Reaction (Intermediate, Verified 10/06/24 15:06) HEADACHE naproxen (NAPROXEN) Adverse Reaction (Mild, Verified 10/06/24 15:06) HEADACHE Medication List - Last Reconciled 10/06/24 by Hasmukh Gibbons MD amlodipine-benazepril 10-20 mg 1 cap PO DAILY apixaban 5 mg PO BID atomoxetine 80 mg PO QAM methadone 30 mg PO DAILY@1700 metoprolol succinate ER 100 mg PO BEDTIME sildenafil 100 mg PO DAILY PRN Tobacco use date assessed: 10/06/24 Dental Screening Dental Screen Date: 10/06/24 Did you have a dental visit in the last 12 months?: Yes Did you have a dental problem in the last 6 months where you did not have access to dental care?: No HPI 1 MO F/UP - LENA PT-JAIL METHADONE SEE NOTES HPI Details 59 yr old male presents to establish his care here. He has been seeing Dr Alvarado who recently retired. Patient has chronic back pain and is taking methadone for pain relief. On 30 mg a day for more than 7 years. Wishes that the new provider who is taking care of him will continue to prescribe methadone at this dosage. 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 [facility] Medical History (Updated 10/06/24 @ 15:14 by Hasmukh Gibbons MD) COVID-19 vaccine series completed Lumbar disc disease Sleep apnea Morbid obesity Essential hypertension PAF (paroxysmal atrial fibrillation) Chronic pain HTN (hypertension) Surgical History History of colonoscopy (~05/13/21) Hx of foot surgery History of knee surgery History of elbow surgery Family History Father No problems noted. Mother Heart disease Maternal Uncle No problems noted. Social History Household Members: Significant Other and Children Housing: House Are you a primary emergency care attendant to a significant other at home: No Do you presently have visiting nurse or other home services: No Alcohol intake: never Patient Tobacco Use Status: Never used Tobacco e-Cigarette/Vaping Use: Never Used Current occupational status: employed Cognitive needs: No Hearing needs: No Vision needs: No Questionnaire PHQ-9 Over the last 2 weeks, how often have you been bothered by any of the following problems? 1. Little interest or pleasure in doing things: not at all 2. Feeling down, depressed, or hopeless: not at all 3. Trouble falling or staying asleep, or sleeping too much: not at all 4. Feeling tired or having little energy: not at all 5. Poor appetite or overeating: not at all 6. Feeling bad about yourself - or that you are a failure or have let yourself or your family down: not at all 7. Trouble concentrating on things, such as reading the newspaper or watching television: not at all 8. Moving or speaking so slowly that other people could have noticed. Or the opposite - being so fidgety or restless that you have been moving around a lot more than usual: not at all 9. Thoughts that you would be better off or of hurting yourself in some way: not at all Total score: 0 Depression Screening Interpretation: Negative Depression Screening Done: Yes Source: Developed by Drs. Jermaine Avalos, Mahi Dubon, David Garces and colleagues, with an educational nancy from [employer]. Thrive Questionnaire Date Thrive assessed: 10/06/24 I am a: Patient Within the past 12 months, did the food you bought not last and you didn't have the money to get more?: Never true Within the past 12 months, did you worry whether your food would run out before you got money to buy more?: Never true Do you have trouble paying for medicines?: No Do you have trouble getting transportation to medical appointments?: No Do you have trouble paying your heating and electricity bill?: No Do you have trouble taking care of your child, family member or friend?: No Do you have trouble with day-to-day activities such as bathing, preparing meals, shopping, managing finances, etc.?: No Are you currently unemployed and looking for a job?: No Are you interested in more education?: No THRIVE Score: 0 AUDIT C Alcohol Use Questionnaire (AUDIT-C) 1. How often do you have a drink containing alcohol?: Never 3. How often do you have six or more drinks on one occasion?: Never Total Score: 0 DICK-7 AMB Questionnaire DICK-7 Date DICK - 7 assessed: 10/06/24 Feeling nervous, anxious, or on edge: 0 = Not at all Not being able to stop or control worryin = Not at all Worrying too much about different things: 0 = Not at all Trouble relaxin = Not at all Being so restless that it is hard to sit still: 0 = Not at all Becoming easily annoyed or irritable: 0 = Not at all Feeling afraid as if something awful might happen: 0 = Not at all Total DICK-7 score (0-4 normal; 5-9 mild; 10-14 moderate; 15-21 severe): 0 Source: Developed by Drs. Jermaine Avalos, Mahi Dubon, David Garces and colleagues, with an educational nancy from [employer]. Physical exam (Primary Care) Vital Signs: Last Vital Signs Temp 97.8 F 10/06/24 09:54 Pulse 78 10/06/24 09:57 Resp 16 10/06/24 09:57 BP 110/66 10/06/24 09:57 Pulse Ox 99 10/06/24 09:57 Oxygen Delivery Method Room Air 10/06/24 09:57 Care Plan Goal for BP management: BP in range Tobacco/Smoking Status: Tobacco use Status Tobacco use date assessed 10/06/24 10/06/24 08:48 Patient Tobacco Use Status Never used Tobacco 10/06/24 08:48 e-Cigarette/Vaping Use Never Used 10/06/24 08:48 PHQ-9: PHQ-9 Score PHQ-9: Total score 0 10/06/24 09:59 Depression Screening Interpretation: Negative Thrive Assessment: Date of Thrive Assessment Date Thrive assessed 10/06/24 10/06/24 08:48 Coding Level of Care Code New Pt Level 4 (84255) Complex EM visit Add On G2211 Diagnoses Chronic pain G89.29 Assessment & Plan Assessment & Plan (1) Chronic pain: Code(s): G89.29 - Other chronic pain Category: Medical Plan: Case discussed with Dr Suárez (comprehensive pain management) and Nikki Slaughter (addiction services) Patient is now dependant on Methadone. His symptoms are controlled on the current dosage. 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 Narcan to be prescribed.
[2024-10-06 09:54] VITALS: TEMP 36.6
[2024-10-06 09:57] VITALS: BP 110/66; PULSE 78; RESP 16; O2SAT 99
== END 2024-10-06 10:25 | disposition home or self-care (01) ==
LOC: HO.HMCHD 09:49
PROVIDERS: PCP Family Medicine; Visit Provider Internal Medicine
DX: G89.29 Other chronic pain (principal)

== ENCOUNTER 2024-10-22 10:30 | Outpatient (AMB) | payer BC, SELFPAY ==
[2024-10-22 08:43] VITALS: BP 130/76; PULSE 75; TEMP 36.8; O2SAT 99; BMI 49.9
--- NOTE | 2024-10-22 08:43 | A.OFFPC_ITS ---
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 Accompanied by: Self / Same As Patient Allergies fentanyl (FENTANYL) Allergy (Severe, Verified 10/22/24 08:43) VERY SHALLOW BREATHING W/LARGE DOSES baclofen (BACLOFEN) Adverse Reaction (Intermediate, Verified 10/22/24 08:43) HEADACHE naproxen (NAPROXEN) Adverse Reaction (Mild, Verified 10/22/24 08:43) HEADACHE Tobacco use date assessed: 10/22/24 Dental Screening Dental Screen Date: 10/22/24 Did you have a dental visit in the last 12 months?: No Did you have a dental problem in the last 6 months where you did not have access to dental care?: No PFSH Medical History COVID-19 vaccine series completed Lumbar disc disease Sleep apnea Morbid obesity Essential hypertension PAF (paroxysmal atrial fibrillation) Chronic pain HTN (hypertension) Surgical History History of colonoscopy (~05/13/21) Hx of foot surgery History of knee surgery History of elbow surgery Family History Father No problems noted. Mother Heart disease Maternal Uncle No problems noted. Social History Household Members: Significant Other and Children Housing: House Are you a primary care management coordinator to a significant other at home: No Do you presently have visiting nurse or other home services: No Alcohol intake: never Patient Tobacco Use Status: Never used Tobacco e-Cigarette/Vaping Use: Never Used Current occupational status: retired Cognitive needs: No Hearing needs: No Vision needs: No Questionnaire PHQ-9 Over the last 2 weeks, how often have you been bothered by any of the following problems? 1. Little interest or pleasure in doing things: not at all 2. Feeling down, depressed, or hopeless: not at all 3. Trouble falling or staying asleep, or sleeping too much: not at all 4. Feeling tired or having little energy: not at all 5. Poor appetite or overeating: not at all 6. Feeling bad about yourself - or that you are a failure or have let yourself or your family down: not at all 7. Trouble concentrating on things, such as reading the newspaper or watching television: not at all 8. Moving or speaking so slowly that other people could have noticed. Or the opposite - being so fidgety or restless that you have been moving around a lot more than usual: not at all 9. Thoughts that you would be better off or of hurting yourself in some way: not at all Total score: 0 Source: Developed by Drs. Jermaine Avalos, Mahi Dubon, David Garces and colleagues, with an educational nancy from [employer]. Thrive Questionnaire Date Thrive assessed: 10/22/24 I am a: Patient Within the past 12 months, did the food you bought not last and you didn't have the money to get more?: Never true Within the past 12 months, did you worry whether your food would run out before you got money to buy more?: Never true Do you have trouble paying for medicines?: No Do you have trouble getting transportation to medical appointments?: No Do you have trouble paying your heating and electricity bill?: No Do you have trouble taking care of your child, family member or friend?: No Do you have trouble with day-to-day activities such as bathing, preparing meals, shopping, managing finances, etc.?: No Are you currently unemployed and looking for a job?: No Are you interested in more education?: No THRIVE Score: 0 AUDIT C Alcohol Use Questionnaire (AUDIT-C) 1. How often do you have a drink containing alcohol?: Never 3. How often do you have six or more drinks on one occasion?: Never Total Score: 0 DICK-7 AMB Questionnaire DICK-7 Date DICK - 7 assessed: 10/22/24 Feeling nervous, anxious, or on edge: 0 = Not at all Not being able to stop or control worryin = Not at all Worrying too much about different things: 0 = Not at all Trouble relaxin = Not at all Being so restless that it is hard to sit still: 0 = Not at all Becoming easily annoyed or irritable: 0 = Not at all Feeling afraid as if something awful might happen: 0 = Not at all Total DICK-7 score (0-4 normal; 5-9 mild; 10-14 moderate; 15-21 severe): 0 Source: Developed by Drs. Jermaine Avalos, Mahi Dubon, David Garces and colleagues, with an educational nancy from [employer]. Physical exam (Primary Care) Vital Signs: Last Vital Signs Temp 98.2 F 10/22/24 08:43 Pulse 75 10/22/24 08:43 BP 130/76 10/22/24 08:43 Pulse Ox 99 10/22/24 08:43 Oxygen Delivery Method Room Air 10/22/24 08:43 BMI result Body Mass Index 49.9 Tobacco/Smoking Status: Tobacco use Status Tobacco use date assessed 10/22/24 10/22/24 08:44 Patient Tobacco Use Status Never used Tobacco 10/22/24 08:44 e-Cigarette/Vaping Use Never Used 10/22/24 08:44 PHQ-9: PHQ-9 Score PHQ-9: Total score 0 10/22/24 10:46 Thrive Assessment: Date of Thrive Assessment Date Thrive assessed 10/22/24 10/22/24 08:44 Coding Level of Care Code Est Pt Level 4 (32459) Complex EM visit Add On G2211 Diagnoses Chronic pain G89.29 Assessment & Plan Assessment & Plan (1) Chronic pain: Code(s): G89.29 - Other chronic pain Category: Medical Plan: History of Present Illness - The patient is a 59-year-old male presenting with methadone tapering and pain management. - He has been on methadone for several years and is currently undergoing a slow tapering process to manage withdrawal symptoms effectively. - The tapering started from 30 mg and has been reduced to 12.5 mg, with plans to continue decreasing the dosage. - The patient experiences increased pain during the tapering process, attributed to withdrawal symptoms. - Insomnia is a significant issue, particularly when tapering off methadone, which has been challenging to manage. - He is considering using cannabis for pain management once methadone is completely tapered off. 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 Review of Systems - Neurological: Reports insomnia, particularly when tapering off methadone. - Musculoskeletal: Reports increased pain during methadone tapering, attributed to withdrawal symptoms. Physical Exam General: Cooperative and healthy appearing Nutritional Appearance: Well nourished Orientation/consciousness: Patient oriented x3 Limitations: No limitations Head: Normal to inspection General: Appearance normal, both eyes and all related structures Neck: Normal visual inspection Chest: Normal palpation of entire chest wall Respiratory: N ormal respiratory effort Neurology: Patient oriented x3, experiencing difficulty sleeping, reports incr eased pain during medication tapering. Results Plan 1. Methadone Tapering - Continue methadone tapering with a gradual reduction in dosage to minimize withdrawal symptoms. - Prescribe 20 mg methadone to support the tapering process, allowing flexibility in dosage reduction. 2. Insomnia - Monitor insomnia symptoms and consider sedative options if necessary towards the end of the methadone taper. 3. Pain Management With Cannabis - Plan to initiate cannabis use for pain management once methadone tapering is complete. Discussion Notes I discussed with the patient the plan to continue methadone tapering with a gradual reduction in dosage to minimize withdrawal symptoms. We agreed on prescribing 20 mg methadone to support the tapering process, allowing flexibility in dosage reduction. We also discussed the potential use of cannabis for pain management once methadone tapering is complete. I advised monitoring insomnia symptoms and considering sedative options if necessary towards the end of the methadone taper. Follow-up arrangements were made to ensure continuity of care. Patient Instructions - Continue methadone tapering as discussed, reducing dosage gradually. - Monitor for any withdrawal symptoms and report any concerns. - Consider using cannabis for pain management once methadone tapering is complete. - If experiencing insomnia, contact the clinic for potential sedative options.
--- OUTSIDE RECORDS SUMMARY | 2024-10-22 11:36 | XMS_ITS | Patient Health Record ---
Author Organization [facility] Address [address] [place] [address] Care Team Providers Care Senior Compliance Analyst Name Role Phone Christiano (RETIRED) Prieto LIM Primary Care Provider Unavailable Edward Kauffman Unavailable [phone] Allergies Allergen (clinical drug ingredient) Drug/Non Drug [...] Problem Status W/U Status Risk Notes Problem [id number] Encounter for screening for malignant neoplasm of colon (Z12.11) Active confirmed Problem [id number] Preprocedural examination (Z01.818) Active confirmed Problem Diverticulosis of colon (757861281) Diverticulosis of colon (K57.30) Active confirmed Plan Of Treatment Future Test Test Name Order Date COLONOSCOPY 11/18/2020 Insurance Providers Payer Name Payer Address Payer Phone Subscriber Number Group Number Insured Name Patient Relationship to Insured Coverage Start Date Coverage End Date [facility] [address] [facility], [place] [phone] [id number] ROBY RECIO Self - patient is the insured Medical (General) History Medical History History ICD Code Afib - Dr. Montoya Hypertension Sleep apnea--has not been able to tolera te the CPAP Back pain--lumbar disc disease Denies AR,DM,CVA,Lung disease,renal dise ase Surgical History Surgery Date(Month/Year) Right elbow 2012 Left knee 2016 Left elbow 2018 Right big toe 2008
== END 2024-10-22 11:11 | disposition home or self-care (01) ==
LOC: HO.HMCHD 10:31
PROVIDERS: PCP Family Medicine; Visit Provider Internal Medicine
DX: G89.29 Other chronic pain (principal)

== ENCOUNTER 2025-01-07 08:54 | Outpatient (AMB) | payer BC, SELFPAY ==
--- NOTE | 2025-01-07 08:42 | A.OFFPC_ITS ---
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[employer] Clerk Required: No Accompanied by: Self / Same As Patient Allergies fentanyl (FENTANYL) Allergy (Severe, Verified 01/07/25 08:42) VERY SHALLOW BREATHING W/LARGE DOSES baclofen (BACLOFEN) Adverse Reaction (Intermediate, Verified 01/07/25 08:42) HEADACHE naproxen (NAPROXEN) Adverse Reaction (Mild, Verified 01/07/25 08:42) HEADACHE Medication List - Last Reconciled 01/07/25 by Baron Phillips MD amlodipine-benazepril 10-20 mg 1 cap PO DAILY apixaban 5 mg PO BID atomoxetine 80 mg PO QAM metoprolol succinate ER 100 mg PO BEDTIME sildenafil 100 mg PO DAILY PRN Tobacco use date assessed: 10/22/24 Dental Screening Dental Screen Date: 10/22/24 HPI HPI Comments History of Present Illness Details The patient is a 60-year-old male presenting with chronic lower back pain. The pain is localized to the sacroiliac (SI) areas and has persisted despite numerous interventions and treatments. He reports receiving over 100 injections, including transforaminal nerve blocks, radiofrequency lesioning (RFL), and facet joint injections, each performed three times. Additionally, he has undergone three discograms. Despite these interventions, the efficacy was minimal, and the patient continues to experience significant pain. He recalls a particularly painful nerve block incident that he describes as the most intense pain he has ever encountered, rating it a 9 out of 10. The patient has tried various medications, such as gabapentin and pregabalin, but reports adverse effects such as feeling bobbleheaded and does not wish to continue using them. He has been on methadone but managed a successful taper off the medication during the summer, when his symptoms were less severe. He describes a gradual dose reduction and experienced withdrawal symptoms during this process. His insomnia worsens at night, and controlling his ADHD with atomoxetine taken at night has proven ineffective. He experiences episodes of atrial fibrillation, with his heart rate reaching over 200 beats per minute. The condition is managed through self-administration of metoprolol succinate and the use of his CPAP machine, although he finds the latter unhelpful. Medical History: - Chronic lower back pain - Sciatica - Previous overuse of methadone with suc cessful weaning - Insomnia - Atrial fibrillation with episodes of h igh heart rate - Hypertension - ADHD treated with atomoxetine - Anxiety - Prior substance misuse history Surgical History: - Multiple nerve blocks, including trans foraminal and facet joint injections - Radiofrequency lesioning - Three discograms Medications: - Methadone 5 mg as previously tapered f or chronic pain management - Atomoxetine 80 mg for ADHD - Amlodipine/benazepril 10/20 mg for hyp ertension - Metoprolol succinate 100 mg for atrial fibrillation - Eliquis (apixaban) 5 mg for anticoagul ation Diagnostic Results: - Multiple imaging studies and procedure s related to spine and back pain (details not specified in conversation) Social History: - Retired, previously in a 29-year city job - 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 Mother Heart disease Maternal Uncle No problems noted. Social History Household Members: Significant Other and Children Housing: House Are you a primary career guidance technician to a significant other at home: No Do you presently have visiting nurse or other home services: No Alcohol intake: never Patient Tobacco Use Status: Never used Tobacco e-Cigarette/Vaping Use: Never Used Current occupational status: retired Cognitive needs: No Hearing needs: No Vision needs: No Questionnaire Thrive Questionnaire Date Thrive assessed: 10/22/24 AUDIT C Alcohol Use Questionnaire (AUDIT-C) 1. How often do you have a drink containing alcohol?: Never 3. How often do you have six or more drinks on one occasion?: Never Total Score: 0 DICK-7 AMB Questionnaire DICK-7 Date DICK - 7 assessed: 10/22/24 Source: Developed by Drs. Jermaine Avalos, Mahi Dubon, David Garces and colleagues, with an educational nancy from [employer]. Review of Systems Const Details: - Musculoskeletal: Reports chronic lower back pain, particularly in the SI areas - Neurological: Reports insomnia; denies effectiveness of CPAP; experiences ADHD - Cardiovascular: Reports episodes of atrial fibrillation with very high heart rates - Psychiatric: Reports history of anxiety - Gastrointestinal: Denies nausea or altered appetite - Respiratory: Denies respiratory complaints but reports elevated heart rate with THC All systems reviewed & are unremarkable except as reviewed in HPI and above Physical exam (Primary Care) Vital Signs: Last Vital Signs Temp 97.9 F 01/07/25 08:43 Pulse 87 01/07/25 08:43 Resp 17 01/07/25 08:43 BP 132/80 01/07/25 08:43 Pulse Ox 99 01/07/25 08:43 Oxygen Delivery Method Room Air 01/07/25 08:43 BMI result Body Mass Index 50.6 Tobacco/Smoking Status: Tobacco use Status Tobacco use date assessed 10/22/24 01/07/25 08:43 Patient Tobacco Use Status Never used Tobacco 01/07/25 08:43 e-Cigarette/Vaping Use Never Used 01/07/25 09:05 Thrive Assessment: Date of Thrive Assessment Date Thrive assessed 10/22/24 01/07/25 08:43 Const Other: General: +Alert and oriented, Well nourished, No acute distress. Eye: Pupils are equal, round and reactive to light, Intact accommodation, Extraocular movements are intact, Normal conjunctiva, Vision unchanged. HENT: Normocephalic, Atraumatic, Tympanic membranes are clear, Normal hearing, Oral mucosa is moist, No pharyngeal erythema, Ear canals patent. Respiratory: Lungs CTA bilaterally, No wheeze, Respirations are non-labored. Cardiovascular: Regular rate, Regular rhythm, S1 auscultated, S2 auscultated, No murmur, Good pulses equal in all extremities, Normal peripheral perfusion, No edema. Gastrointestinal: Soft, Non-tender, Non-distended, Normal bowel sounds, No organomegaly. Musculoskeletal: Normal range of motion, Normal strength, No tenderness, No s welling, No deformity, Normal gait. Integumentary: Warm, Dry, [place], Intact. Neurologic: Alert, Oriented, Normal sensory, Normal motor function, No focal defects, Cranial Nerves II-XII are grossly intact, Normal deep tendon reflexes. Psychiatric: Cooperative, Appropriate mood & affect, Normal judgment. Coding Level of Care Code Est Pt Level 4 (88768) Complex EM visit Add On G2211 Diagnoses PAF (paroxysmal atrial fibrillation) I48.0 Essential hypertension I10 Other chronic pain G89.29 Chronic pain type: other chronic pain Obstructive sleep apnea G47.33 Attention deficit hyperactivity disorder (ADHD), unspecified ADHD type F90.9 Attention deficit-hyperactivity disorder type: unspecified Assessment & Plan Assessment & Plan (1) PAF (paroxysmal atrial fibrillation): Comment: - Encouraged communication with recycling worker regarding current management strategies - Suggested monitoring with Apple Watch for heart rate Code(s): I48.0 - Paroxysmal atrial fibrillation Category: Medical (2) Essential hypertension: Comment: - Continued amlodipine/benazepril and metoprolol succinate as current regimen Code(s): I10 - Essential (primary) hypertension Category: Medical (3) Chronic pain: Comment: - Initiated trial of pregabalin 50 mg at night for three weeks; reassess efficacy and tolerability - Discussed trial of naproxen for additional pain and inflammation management - Counselled on avoiding gabapentin due to previous adverse effects - Consideration for possible reinstatement of methadone 10mg daily if pain management with current plan is ineffective in three weeks Code(s): G89.29 - Other chronic pain Category: Medical Qualifiers: Chronic pain type: other chronic pain Qualified Code(s): G89.29 - Other chronic pain (4) Obstructive sleep apnea: Comment: - Encouraged use of CPAP Code(s): G47.33 - Obstructive sleep apnea (adult) (pediatric) Category: Medical Plan: (5) ADHD (attention deficit hyperactivity disorder): Comment: - Shifted atomoxetine dosing to the morning to reduce stimulation at night Code(s): F90.9 - Attention-deficit hyperactivity disorder, unspecified type Category: Medical Qualifiers: Attention deficit-hyperactivity disorder type: unspecified Qualified Code(s): F90.9 - Attention-deficit hyperactivity disorder, unspecified type Plan: Healthcare Maintenance: - Encouraged cardiovascular health monitoring guidance - Ongoing engagement in regular primary and cardiac follow-up Patient was informed and verbally consented to the use of an ambient scribe for clinic note documentation during this visit. Plan I discussed with the patient the management options for his chronic lower back pain, shifting the focus towards pregabalin to alleviate pain and aid in sleep. We examined the adverse effects he experienced with gabapentin, hence opting for a lower starting dose of pregabalin. I informed the patient about the therapeutic effects and potential side effects of pregabalin, advising a trial period with review in three weeks to reassess pain levels and sleep quality. I also recommended naproxen for pain relief. We talked about the management of atrial fibrillation, focusing on monitoring via his Apple Watch and coordinating with his recycling worker. The restructuring of his ADHD medication dosage time was also advised to improve nocturnal symptoms. Discussions were candid regarding past methadone use, his successful taper process, and openness to alternative therapies if current management is ineffective. I clarified that the avoidance of THC and non-functional substances is essential due to cardiovascular risks. Medications: New pregabalin 50 mg PO BEDTIME 30 caps 0RF 30 days sildenafil 100 mg PO DAILY PRN 20 tabs 6RF Erectile Dysfunction Changed From apixaban 5 mg PO BID To apixaban 5 mg PO BID 180 tabs 3RF 90 days From metoprolol succinate ER 100 mg PO BEDTIME To metoprolol succinate ER 100 mg PO BEDTIME 90 tabs 3RF 90 days From amlodipine-benazepril 10-20 mg 1 cap PO DAILY To amlodipine-benazepril 10-20 mg 1 cap PO DAILY 90 caps 3RF 90 days From atomoxetine 80 mg PO QAM To atomoxetine 80 mg PO QAM 90 caps 3RF 90 days Patient Instructions: - Take pregabalin 50 mg at night before bed for pain and sleep. - Take naproxen as needed for additional pain relief. - Shift atomoxetine to morning time to help sleep better at night. - Monitor heart rate regularly using your Apple Watch. - Avoid taking non-prescribed substances or THC due to heart risks. - Contact your recycling worker to discuss your heart rate management and medication. - Follow up with us in three weeks to evaluate pain management with the current plan.
[2025-01-07 08:43] VITALS: BP 132/80; PULSE 87; RESP 17; TEMP 36.6; O2SAT 99; BMI 50.6
== END 2025-01-07 09:35 | disposition home or self-care (01) ==
PROVIDERS: PCP Student in an Organized Health Care Education/Training Program; Visit Provider Student in an Organized Health Care Education/Training Program
DX: I48.0 Paroxysmal atrial fibrillation (principal); I10 Essential (primary) hypertension; G89.29 Other chronic pain; G47.33 Obstructive sleep apnea (adult) (pediatric); F90.9 Attention-deficit hyperactivity disorder, unspecified type

== ENCOUNTER 2025-01-28 08:57 | Outpatient (AMB) | payer BC, SELFPAY ==
--- NOTE | 2025-01-28 08:29 | MHC.PC.OV ---
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: No Accompanied by: Self / Same As Patient Allergies fentanyl (FENTANYL) Allergy (Severe, Verified 01/28/25 09:10) VERY SHALLOW BREATHING W/LARGE DOSES baclofen (BACLOFEN) Adverse Reaction (Intermediate, Verified 01/28/25 09:10) HEADACHE naproxen (NAPROXEN) Adverse Reaction (Mild, Verified 01/28/25 09:10) HEADACHE Tobacco use date assessed: 01/28/25 Dental Screening Dental Screen Date: 01/28/25 Did you have a dental visit in the last 12 months?: Yes Did you have a dental problem in the last 6 months where you did not have access to dental care?: No HPI HPI Comments History of Present Illness Details The patient is a 60-year-old male presenting for management of chronic low back pain. He describes the pain as very uncomfortable. He was recently started on pregabalin, which he took at night for about six days but discontinued due to side effects of headache and forgetfulness, and reported no improvement in his pain. He also tried a combination of Tylenol and ibuprofen without relief. The patient's medical history includes hypertension, atrial fibrillation, and ADHD. He takes amlodipine-benazepril, Eliquis, metoprolol succinate, and atomoxetine. He notes sexual side effects with atomoxetine when taking it in the morning, which were not present when taking it at night. Based on his last blood work, the patient has chronic kidney disease stage 3, a diagnosis he was not previously aware of. His biological mother recently from stage 5 kidney disease. For preventative screening, his last colonoscopy was within the last five years and he is due for his next one in 2026. Medical History: - Chronic low back pain - Atrial fibrillation - Hypertension - Attention-deficit/hyperactivity disorder - Chronic kidney disease, stage 3 Medications: - Amlodipine-benazepril 10/20 mg for hypertension - Eliquis for atrial fibrillation - Metoprolol succinate 100 mg for atrial fibrillation - Atomoxetine for ADHD Family History: - Biological mother with stage 5 kidney disease, now Diagnostic Results: - Last blood work showed chronic kidney disease, stage 3. Social History: - Tobacco: Reports never smoking. - Environmental exposures: Reports growing up in a household with smokers. [facility] Medical History (Updated 01/28/25 @ 09:33 by Baron Phillips MD) Stage 3a chronic kidney disease (CKD) ADHD (attention deficit hyperactivity disorder) COVID-19 vaccine series completed Lumbar disc disease Sleep apnea Morbid obesity Essential hypertension PAF (paroxysmal atrial fibrillation) Chronic pain HTN (hypertension) Surgical History History of colonoscopy (~05/13/21) Hx of foot surgery History of knee surgery History of elbow surgery Family History Father No problems noted. Mother Heart disease Maternal Uncle No problems noted. Social History Household Members: Significant Other and Children Housing: House Are you a primary early breastfeeding care specialist to a significant other at home: No Do you presently have visiting nurse or other home services: No Alcohol intake: never Patient Tobacco Use Status: Never used Tobacco e-Cigarette/Vaping Use: Never Used Current occupational status: retired Cognitive needs: No Hearing needs: No Vision needs: No Questionnaire PHQ-9 Over the last 2 weeks, how often have you been bothered by any of the following problems? 1. Little interest or pleasure in doing things: not at all 2. Feeling down, depressed, or hopeless: not at all 3. Trouble falling or staying asleep, or sleeping too much: not at all 4. Feeling tired or having little energy: not at all 5. Poor appetite or overeating: not at all 6. Feeling bad about yourself - or that you are a failure or have let yourself or your family down: not at all 7. Trouble concentrating on things, such as reading the newspaper or watching television: not at all 8. Moving or speaking so slowly that other people could have noticed. Or the opposite - being so fidgety or restless that you have been moving around a lot more than usual: not at all 9. Thoughts that you would be better off or of hurting yourself in some way: not at all Total score: 0 Depression Screening Interpretation: Negative Depression Screening Done: Yes 83187 - PHQ-9 Billing: Yes Source: Developed by Drs. Jermaine Avalos, David Wilkes and colleagues, with an educational nancy from [employer]. Thrive Questionnaire Date Thrive assessed: 01/28/25 I am a: Patient What is your living situation today?: I have a steady place to live Within the past 12 months, did the food you bought not last and you didn't have the money to get more?: Never true Within the past 12 months, did you worry whether your food would run out before you got money to buy more?: Never true Do you have trouble paying for medicines?: No Do you have trouble getting transportation to medical appointments?: No Do you have trouble paying your heating and electricity bill?: No Do you have trouble taking care of your child, family member or friend?: No Do you have trouble with day-to-day activities such as bathing, preparing meals, shopping, managing finances, etc.?: No Are you currently unemployed and looking for a job?: No Are you interested in more education?: No THRIVE Score: 0 AUDIT C Alcohol Use Questionnaire (AUDIT-C) 1. How often do you have a drink containing alcohol?: Never 3. How often do you have six or more drinks on one occasion?: Never Total Score: 0 Score Reviewed/Action Taken: Yes DICK-7 AMB Questionnaire DICK-7 Date DICK - 7 assessed: 01/28/25 Feeling nervous, anxious, or on edge: 0 = Not at all Not being able to stop or control worryin = Not at all Worrying too much about different things: 0 = Not at all Trouble relaxin = Not at all Being so restless that it is hard to sit still: 0 = Not at all Becoming easily annoyed or irritable: 0 = Not at all Feeling afraid as if something awful might happen: 0 = Not at all Total DICK-7 score (0-4 normal; 5-9 mild; 10-14 moderate; 15-21 severe): 0 Source: Developed by Mahi King Kurt Kroenke and colleagues, with an educational nancy from [employer]. DICK-7 Assessment Billing DICK-7 Assessment Tool: DICK-7 Assessment 28479 Review of Systems Narrative - Neurological: Reports headaches and forgetfulness while taking pregabalin. - Musculoskeletal: Reports uncomfortable low back pain. - Genitourinary: Reports sexual side effects with morning use of atomoxetine. All systems reviewed & are unremarkable except as reviewed in HPI and above Physical exam (Primary Care) Vital Signs: Last Vital Signs Temp 98.3 F 01/28/25 08:30 Pulse 78 01/28/25 08:30 Resp 16 01/28/25 08:30 BP 104/70 01/28/25 08:30 Pulse Ox 98 01/28/25 08:30 Oxygen Delivery Method Room Air 01/28/25 08:30 BMI result Body Mass Index 36.0 Tobacco/Smoking Status: Tobacco use Status Tobacco use date assessed 01/28/25 01/28/25 08:32 Patient Tobacco Use Status Never used Tobacco 01/28/25 08:30 e-Cigarette/Vaping Use Never Used 01/28/25 08:30 PHQ-9: PHQ-9 Score PHQ-9: Total score 0 01/28/25 09:26 Depression Screening Interpretation: Negative Thrive Assessment: Date of Thrive Assessment Date Thrive assessed 01/28/25 01/28/25 08:32 Narrative General: Alert and oriented, Well nourished, No acute distress. Eye: Pupils are equal, round and reactive to light, Intact accommodation, Extraocular movements are intact, Normal conjunctiva, Vision unchanged. HENT: Normocephalic, Atraumatic, Tympanic membranes are clear, Normal hearing, Oral mucosa is moist, No pharyngeal erythema, Ear canals patent. Respiratory: Lungs CTA bilaterally, No wheeze, Respirations are non-labored. Cardiovascular: Regular rate, Regular rhythm, S1 auscultated, S2 auscultated, No murmur, Good pulses equal in all extremities, Normal peripheral perfusion, No edema. Gastrointestinal: Soft, Non-tender, Non-distended, Normal bowel sounds, No organomegaly. Musculoskeletal: Normal range of motion, Normal strength, No tenderness, No swelling, No deformity, Normal gait. Integumentary: Warm, Dry, [place], Intact. Neurologic: Alert, Oriented, Normal sensory, Normal motor function, No focal defects, Cranial Nerves II-XII are grossly intact, Normal deep tendon reflexes. Psychiatric: Cooperative, Appropriate mood & affect, Normal judgment. Coding Level of Care Code Est Pt Prev Care 40-64y(43149) Diagnoses Other chronic pain G89.29 Chronic pain type: other chronic pain Stage 3a chronic kidney disease (CKD) N18.31 Attention deficit hyperactivity disorder (ADHD), unspecified ADHD type F90.9 Attention deficit-hyperactivity disorder type: unspecified Essential hypertension I10 PAF (paroxysmal atrial fibrillation) I48.0 Encounter for annual physical exam Z00.00 Additional Codes PHQ-9 - 07758 - PHQ-9 Billing: Yes ([id number]) DICK-7 Assessment Billing - DICK-7 Assessment Tool: DICK-7 Assessment 36862 ([id number]) Assessment & Plan Assessment & Plan (1) Chronic pain: Comment: - The patient's pain has not responded to a trial of pregabalin, which was discontinued due to side effects, or to a combination of ibuprofen and Tylenol. - Will prescribe methadone 10 mg for 30 days. (Previously on 40 but was weaned off however continued to use 10mg tablets PRN) - He has been referred to [facility] for further pain management. Code(s): G89.29 - Other chronic pain Category: Medical Qualifiers: Chronic pain type: other chronic pain Qualified Code(s): G89.29 - Other chronic pain (2) Stage 3a chronic kidney disease (CKD): Comment: - This was a new finding for the patient based on prior labs. - He was reassured that the condition is not life-threatening and that close monitoring is the standard of care. - The importance of maintaining good blood pressure control was emphasized. - Repeat blood work, including a cholesterol panel, A1c, thyroid panel, and renal function tests, was ordered for today. Code(s): N18.31 - Chronic kidney disease, stage 3a Category: Medical (3) ADHD (attention deficit hyperactivity disorder): Comment: - The patient reports sexual side effects when taking atomoxetine in the morning. - He has an upcoming appointment with his psychiatrist, Dr. Richard, to discuss this. - He was advised he can switch back to taking it at night if he prefers. Code(s): F90.9 - Attention-deficit hyperactivity disorder, unspecified type Category: Medical Qualifiers: Attention deficit-hyperactivity disorder type: unspecified Qualified Code(s): F90.9 - Attention-deficit hyperactivity disorder, unspecified type (4) Essential hypertension: Comment: - Condition is well-controlled on current medications. - Will continue amlodipine-benazepril 10/20mg once daily. Code(s): I10 - Essential (primary) hypertension Category: Medical (5) PAF (paroxysmal atrial fibrillation): Comment: - The patient is stable on his current regimen. - Will continue Eliquis and metoprolol 100 mg succinate once daily. Code(s): I48.0 - Paroxysmal atrial fibrillation Category: Medical (6) Encounter for annual physical exam: Code(s): Z00.00 - Encounter for general adult medical examination without abnormal findings Plan: - The patient is due for a colonoscopy in 2026. - An at-home Cologuard test will be ordered for interval screening. - As a never-smoker, lung cancer screening is not indicated. Plan Health Maintenance; - This visit is being conducted as the patient's annual wellness exam. - His last colonoscopy was within the last five years, and the next is due in 2026. - A fecal immunochemical test (FIT) will be ordered for interval colon cancer screening. - The patient is a never-smoker, so lung cancer screening is not necessary. - Lab work has been ordered to check cholesterol, A1c, and thyroid function. Patient was informed and verbally consented to the use of an ambient scribe for clinic note documentation during this visit. I informed the patient of his new diagnosis of chronic kidney disease stage 3 based on his last labs. I reassured him that this is not life-threatening and that we will monitor it closely, emphasizing the importance of continued blood pressure control. For his chronic low back pain, I explained that since pregabalin was not effective, I would be prescribing methadone 10 mg. I also informed him that I am referring him to a pain management clinic for a specialist's evaluation. We discussed the side effects of his atomoxetine and that he should follow up with his psychiatrist. I ordered bloodwork to be done today and will message him through the patient portal with the results. I also instructed him on how to use the patient portal via a QR code. Orders: Orders Complete Blood Count Auto Diff Today N18.31 - Chronic kidney disease, stage 3a, Z00.00 - Encounter for general adult medical examination without abnormal findings Comprehensive Met. Panel Today N18.31 - Chronic kidney disease, stage 3a, Z00.00 - Encounter for general adult medical examination without abnormal findings HIV Ab/Ag Today N18.31 - Chronic kidney disease, stage 3a, Z00.00 - Encounter for general adult medical examination without abnormal findings Lipid Panel Today N18.31 - Chronic kidney disease, stage 3a, Z.00 - Encounter for general adult medical examination without abnormal findings Vitamin D 25-OH Total Today N18.31 - Chronic kidney disease, stage 3a, Z.00 - Encounter for general adult medical examination without abnormal findings Hemoglobin A1c Today N18.31 - Chronic kidney disease, stage 3a, Z.00 - Encounter for general adult medical examination without abnormal findings Hepatitis A,B,C Profile Today N18.31 - Chronic kidney disease, stage 3a, Z. - Encounter for general adult medical examination without abnormal findings Syphilis Screen Today N18.31 - Chronic kidney disease, stage 3a, Z.00 - Encounter for general adult medical examination without abnormal findings TSH reflex Free T4 Today N18.31 - Chronic kidney disease, stage 3a, Z00. - Encounter for general adult medical examination without abnormal findings Microalbumin, Random (w Creat) Today Z00.00 - Encounter for general adult medical examination without abnormal findings Referrals Cologuard Test Z12.11 - Encounter for screening for malignant neoplasm of colon Pain Management Referral G89.29 - Other chronic pain Medications: New methadone Partial Fill upon patient request. 10 mg PO DAILY 30 tabs 0RF 30 days G89.29 - Other chronic pain Patient Instructions: - Go across the [place] to the lab to have your blood drawn today. You do not need to be fasting. - I have sent a prescription for methadone 10 mg to your pharmacy for your back pain. - We are referring you to a pain management clinic, [facility], for your back pain. They will contact you to schedule an appointment. - Continue your follow-up with your psychiatrist, Dr. Richard, for your ADHD management. - You can go back to taking your atomoxetine at night if it causes fewer side effects. - A kit for a stool test will be sent to you. Please complete it and send it back as instructed. - I will contact you through the patient portal with your lab results or if any changes to your treatment are needed.
[2025-01-28 08:30] VITALS: BP 104/70; PULSE 78; RESP 16; TEMP 36.8; O2SAT 98; BMI 36.0
== END 2025-01-28 09:37 | disposition home or self-care (01) ==
PROVIDERS: PCP Student in an Organized Health Care Education/Training Program; Visit Provider Student in an Organized Health Care Education/Training Program
DX: Z00.00 Encounter for general adult medical examination without abnormal findings (principal); I12.9 Hypertensive chronic kidney disease with stage 1 through stage 4 chronic kidney disease, or unspecified chronic kidney disease; N18.31 Chronic kidney disease, stage 3a; I48.0 Paroxysmal atrial fibrillation; G89.29 Other chronic pain; F90.9 Attention-deficit hyperactivity disorder, unspecified type

== ENCOUNTER → 2025-01-28 08:57 | Outpatient (BNVA) | payer BC, SELFPAY | PROVIDERS: PCP Student in an Organized Health Care Education/Training Program; Visit Provider Student in an Organized Health Care Education/Training Program | DX: Z00.00 Encounter for general adult medical examination without abnormal findings (principal); I12.9 Hypertensive chronic kidney disease with stage 1 through stage 4 chronic kidney disease, or unspecified chronic kidney disease; N18.31 Chronic kidney disease, stage 3a; I48.0 Paroxysmal atrial fibrillation; F90.9 Attention-deficit hyperactivity disorder, unspecified type; G89.29 Other chronic pain | CPT/HCPCS: 96127 ==

== ENCOUNTER 2025-01-28 09:47 | Outpatient (REF) | payer BC, SELFPAY ==
[2025-01-28 11:24] LABS: MANUAL DIFF FLAG NO
--- OUTSIDE RECORDS SUMMARY | 2025-01-28 11:40 | XMS_ITS | Patient Health Record ---
Author Organization [facility] Address [address] [place] [address] Care Team Providers Care Mason Helper Name Role Phone Christiano (RETIRED) Prieto LIM Primary Care Provider Unavailable Edward Kauffman Unavailable [phone] Allergies Allergen (clinical drug ingredient) Drug/Non Drug [...] 1 CAPSULE BY MOUTH EVERY DAY DIRECTED Oral; Duration: 90 Active Eliquis 5 MG Oral; Duration: 30 Active Metoprolol Succinate ER 50 MG TAKE 1 TABLET BY MOUTH TWICE DAILY DIRECTED Oral; Duration: 90 Active Immunizations Vaccine Route Administration Date [...] Problem Status W/U Status Risk Notes Problem Screening for malignant neoplasm of colon ([id number]) Encounter for screening for malignant neoplasm of colon (Z12.11) Active confirmed Problem Preprocedural examination ([id number]) Preprocedural examination (Z01.818) Active confirmed Problem Diverticulosis of colon ([id number]) Diverticulosis of colon (K57.30) Active confirmed Plan Of Treatment Future Test Test Name Order Date COLONOSCOPY 11/18/2020 Insurance Providers Payer Name Payer Address Payer Phone Subscriber Number Group Number Insured Name Patient Relationship to Insured Coverage Start Date Coverage End Date [facility] [address] [facility] [place] [phone] [id number] ROBY RECIO Self - patient is the insured Medical (General) History Medical History History ICD Code Afib - Dr. Montoya Hypertension Sleep apnea--has not been able to tolera te the CPAP Back pain--lumbar disc disease Denies [place],DM,CVA,Lung disease,renal dise ase Surgical History Surgery Date(Month/Year) Right elbow 2012 Left knee 2015 Left elbow 2017 Right big toe 2008
[2025-01-28 11:51] LABS: Hematocrit 46.0 % (42.0-52.0); Hemoglobin 14.9 g/dl (14.0-18.0); Imm Gran Abs Auto 0.03 X10*3/uL (0.00-0.03); Imm Gran Pct Auto 0.5 % (0.0-0.4); Lymphocytes Absolute Auto 1.8 X10*3/uL (1.2-4.9); Mean Corpuscular HGB Conc 32.4 g/dl (31.0-36.0); Mean Corpuscular Hemoglobin 30.2 pg (27.0-33.0); Mean Corpuscular Volume 93.1 fL (80.0-98.0); NRBC Abs Auto 0.000 X10*3/uL (0.0-0.012); NRBC Pct Auto 0.0 /100WBC (0.0-0.2); Platelet Count 255 X10*3/uL (160-400); Red Blood Count 4.94 X10*6/uL (4.60-5.80); White Blood Count 6.3 X10*3/uL (4.8-10.8)
[2025-01-28 12:05] LABS: Alanine Aminotransferase 26 U/L (0-40); Albumin Level 4.6 g/dL (3.5-5.0); Alkaline Phosphatase 93 U/L (39-117); Anion Gap 11 (12-20); Aspartate Amino Transferase 24 U/L (5-37); Blood Urea Nitrogen 22 mg/dL (9-16); Calcium 9.4 mg/dL (8.4-10.2); Carbon Dioxide 30 mmol/L (22-29); Chloride 104 mmol/L (96-108); Cholesterol 173 mg/dL (<200); Estimated Glomerular Filt Rate 55; HDL Cholesterol 41 mg/dL (>40); Potassium 4.7 mmol/L (3.3-5.1); Sodium 140 mmol/L (135-145); Total Protein 7.6 g/dL (6.5-8.0); Triglycerides 93 mg/dL (<150)
[2025-01-28 12:15] LABS: Syphilis Screen Nonreactive (Nonreactive)
[2025-01-28 12:16] LABS: HBS Num1 0.23 mIU/mL (0-7.99); HBc Num1 0.11 S/CO (0.00-0.79); HBsAGNum1 0.34 S/CO (0.00-0.99); HIV Num 1 0.09 S/CO (0.00-0.99); Hepatitis A Antibody IgM 0.17 Index (0-0.79); Hepatitis B Surface Antigen Negative (Negative); ~HepC Num1 0.08 S/CO (0.00-0.79); ~Hepatitis A Antibody IgM Nonreactive (Nonreactive); ~Hepatitis B Surface Antibody NONREACTIVE (Nonreactive); ~Hepatitis C Antibody Nonreactive (Nonreactive)
[2025-01-28 12:35] LABS: Microalbum/Creatinine Ratio Ur 13.2 ug/mg cr (<30)
== END 2025-01-28 09:48 | disposition home or self-care (01) ==
LOC: HO.10HDL 09:47
PROVIDERS: Visit Provider Student in an Organized Health Care Education/Training Program
DX: Z00.00 Encounter for general adult medical examination without abnormal findings (principal); N18.31 Chronic kidney disease, stage 3a; Z13.1 Encounter for screening for diabetes mellitus; Z11.4 Encounter for screening for human immunodeficiency virus [HIV]; Z11.59 Encounter for screening for other viral diseases; Z13.29 Encounter for screening for other suspected endocrine disorder; Z01.84 Encounter for antibody response examination
CPT/HCPCS: 36415; 80053; 80061; 82043; 82306; 82570; 83036; 84443; 85025; 86704; 86706; 86709; 86780; 86803; 87340; 87389

== ENCOUNTER 2025-03-24 12:48 | Outpatient (AMB) | payer BC, SELFPAY ==
--- NOTE | 2025-03-24 12:51 | A.OFFVIS_ITS ---
Vital Signs 03/24/25 12:53 Height 6 ft Weight 260 lb 2.327 oz BMI 35.3 BP 110/70 Blood Pressure Location Lt brachial Position Sitting Pulse 67 Pulse Source Monitor Intake Visit Reasons: 1 yr f/up Certified Pharmacy Tech Required: No Accompanied by: Self / Same As Patient Allergies fentanyl (FENTANYL) Allergy (Severe, Verified 01/28/25 09:10) VERY SHALLOW BREATHING W/LARGE DOSES baclofen (BACLOFEN) Adverse Reaction (Intermediate, Verified 01/28/25 09:10) HEADACHE naproxen (NAPROXEN) Adverse Reaction (Mild, Verified 01/28/25 09:10) HEADACHE Medication List - Last Reconciled 03/24/25 by Russell Montoya MD amlodipine-benazepril 10-20 mg 1 cap PO DAILY 90 days apixaban 5 mg PO BID 90 days atomoxetine 80 mg PO QAM 90 days metformin 500 mg PO DAILY 90 days methadone 10 mg PO DAILY 30 days metoprolol succinate ER 100 mg PO BEDTIME 90 days sildenafil 100 mg PO DAILY PRN HPI Comments Details: Leonardo returns for follow-up regarding atrial fibrillation. 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 He is maintained on beta- blockers. Also on Eliquis. He is morbidly obese but has lost more than 50 lb in weight by himself. No known cardiomyopathy. During the summer months he apparently had some palpitations that he presumed to be from atrial fibrillation. He has self-medicated and had started taking an extra metoprolol 50 mg in the morning in addition to the 100 mg in the evenings. After that, he states the palpitations are much improved. No other complaints like exertional angina. [facility] Medical History Stage 3a chronic kidney disease (CKD) ADHD (attention deficit hyperactivity disorder) COVID-19 vaccine series completed Lumbar disc disease Sleep apnea Morbid obesity Essential hypertension PAF (paroxysmal atrial fibrillation) Chronic pain HTN (hypertension) Surgical History History of colonoscopy (~05/13/21) Hx of foot surgery History of knee surgery History of elbow surgery Family History Father No problems noted. Mother Heart disease Maternal Uncle No problems noted. Social History Household Members: Significant Other and Children Housing: House Are you a primary family member caretaker to a significant other at home: No Do you presently have visiting nurse or other home services: No Alcohol intake: never Patient Tobacco Use Status: Never used Tobacco e-Cigarette/Vaping Use: Never Used Current occupational status: retired Cognitive needs: No Hearing needs: No Vision needs: No Review of Systems Const Denies chills, Denies fatigue, Denies fever(s), Denies frequent falls, Denies weakness, Denies weight gain and Denies weight loss ENT Denies dizziness Card Denies chest pain, Denies leg edema, Denies lightheadedness, Denies palpitations, Denies dyspnea and Denies dyspnea on exertion Resp Denies cough, Denies dyspnea and Denies dyspnea on exertion GI Denies hematochezia Musc Denies abnormal gait, Denies muscle weakness, Denies numbness, Denies radiating pain into limb and Denies tingling Neuro Denies abnormal gait, Denies dizziness, Denies frequent falls, Denies numbness, Denies tingling and Denies weakness Endo Denies fatigue and Denies palpitations Physical Exam Vital Signs: Last Vital Signs Pulse 67 03/24/25 12:53 BP 110/70 03/24/25 12:53 BMI result Body Mass Index 35.3 Const General: comfortable and no acute distress Orientation/consciousness: patient oriented x3 HEENT Other: Unremarkable Head: Yes normal to inspection Neck Neck: Yes normal visual inspection Chest Chest palpation & inspection: normal inspection of the chest Resp Auscultation: clear to auscultation bilaterally Cardio Palpation: normal PMI Heart sounds: S1 normal heart sound present, S2 normal heart sound present, no gallops, no murmurs and no rubs GI Palpation (GI): Soft to palpation Back/Spine/Pelvis Other: unremarkable Skin General skin exam: no rashes or lesions noted Neuro General: patient oriented x3 Extrem General: Yes normal to inspection Psych Mental Status: mental status grossly normal Office Procedures EKG Details: EKG with underlying sinus rhythm at 67/Min; no ischemic changes; [place] [id number]-[id number], Complete Assessment & Plan Assessment & Plan (1) PAF (paroxysmal atrial fibrillation): Code(s): I48.0 - Paroxysmal atrial fibrillation Category: Medical Plan: Unclear if his palpitations are truly atrial fibrillation or other arrhythmias like ectopy or sinus tachycardia. Hence we will get a Holter monitor. Continue beta-blockers/Eliquis. Echocardiogram with LVEF of 55-60%. Mild increase in right ventricular size and otherwise unremarkable. (2) Essential hypertension: Code(s): I10 - Essential (primary) hypertension Category: Medical Plan: On benazepril/amlodipine. Stable. (3) Morbid obesity: Code(s): E66.01 - Morbid (severe) obesity due to excess calories Category: Medical Plan: He states his peak weight was about 310 lb. Currently around 50 lb less. Continue to lose weight. (4) Obstructive sleep apnea: Code(s): G47.33 - Obstructive sleep apnea (adult) (pediatric) Category: Medical Plan: Sleep study with severe sleep apnea but unable to use CPAP. Hopefully, weight loss should help with this. Plan Discussion Notes: I discussed with the patient his episodes of palpitations. I explained that while he identifies them as atrial fibrillation, other arrhythmias like PACs or PVCs can cause similar symptoms, and we need to capture an event on a monitor to be certain of the diagnosis. To accomplish this, I have ordered a one-week heart monitor and advised him he could try to induce the symptoms by skipping his morning medication once the monitor is on. I emphasized that he should call me if symptoms recur instead of self-medicating, so I can properly assess the situation. In the meantime, I will send a prescription for metoprolol 50 mg for morning use to be taken with his 100 mg evening dose. We also discussed his successful weight loss, and I encouraged him to continue these efforts, as it is francis to reducing his diabetes risk and may also improve his sleep apnea. We will have a follow-up appointment in six months, but I will be in touch sooner if the monitor results are significant. Patient was informed and verbally consented to the use of an ambient scribe for clinic note documentation during this visit. Orders: Orders ECG 7 day holter monitor Today I48.0 - Paroxysmal atrial fibrillation Medications: New metoprolol succinate ER (Toprol XL) 50 mg PO DAILY 90 tabs 1RF Patient Instructions: - Take metoprolol as prescribed. - Continue taking Eliquis as prescribed. - A one-week heart monitor has been ordered for you, and the monitoring company will contact you to set it up. - Once you have the monitor, you may skip your morning dose of metoprolol for a day or two to see if it causes your palpitations. This will help us record your heart rhythm during an episode. - Call the office immediately if you experience palpitations, a racing heart, or shortness of breath. Do not change your medication doses on your own. - Continue your efforts to lose weight through diet and exercise, as this is very important for your heart health and can help improve sleep apnea. - Schedule a follow-up appointment in six months. Coding Level of Care Code Est Pt Level 4 (63687) Add On Problem Visit Only Diagnoses PAF (paroxysmal atrial fibrillation) I48.0 Essential hypertension I10 Morbid obesity E66.01 Obstructive sleep apnea G47.33 CPT Codes EKG - CPT: 67096-[id number], Complete ([id number])
[2025-03-24 12:53] VITALS: BP 110/70; PULSE 67; BMI 35.3
--- OUTSIDE RECORDS SUMMARY | 2025-03-24 13:51 | XMS_ITS | Patient Health Record ---
Author Organization [facility] Address [address] [place] [address] Care Team Providers Care Casing Man Name Role Phone Christiano (RETIRED) Prieto LIM Primary Care Provider Unavailable Edward Kauffman Unavailable [phone] Allergies Allergen (clinical drug ingredient) Drug/Non Drug Allergy documented on EMR Reaction Allergy Type Onset Date Status baclofen Baclofen Unknown Drug Allergy Active fentanyl Fentanyl Unknown Drug Allergy Active Reason For Referral No Information Medications Medication SIG (Take, Route, Frequency, Duration) Notes Start Date End Date Status Methadone HCl 10 MG Tablet 30 mg Oral as directed Active amLODIPine Besy-Benazepril HCl 10-20 MG Capsule TAKE 1 CAPSULE BY MOUTH EVERY DAY DIRECTED Oral; Duration: 90 Active Eliquis 5 MG Tablet Oral; Duration: 30 Active Metoprolol Succinate ER 50 MG Tablet Extended Release 24 Hour TAKE 1 TABLET BY MOUTH TWICE DAILY DIRECTED Oral; Duration: 90 Active Immunizations Vaccine Route Administration Date Status Comme nts Influenza Unknown 11/18/2020 Refused Social History Tobacco Use: Social History Observation Description Date Details (start date - stop date) Never Smoker NA - NA Social History Drugs/Alcohol: Social Info Question Answer Notes Alcohol Screen Did you have a drink containing alcohol in the past year? 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[employer] Section Notes: Nonsmoker; no sig alcohol Problems Problem Type SNOMED Code ICD Code Onset Dates Problem Status W/U Status Risk Notes Problem Screening for malignant neoplasm of colon (261224023) Encounter for screening for malignant neoplasm of colon (Z12.11) Active confirmed Problem Preprocedural examination (652372360944063) Preprocedural examination (Z01.818) Active confirmed Problem Diverticulosis of colon (947565844) Diverticulosis of colon (K57.30) Active confirmed Plan Of Treatment Future Test Test Name Order Date COLONOSCOPY 11/18/2020 Insurance Providers Payer Name Payer Address Payer Phone Subscriber Number Group Number Insured Name Patient Relationship to Insured Coverage Start Date Coverage End Date [facility] [address] [place] [phone] [id number] ROBY RECIO Self - patient is the insured Medical (General) History Medical History History ICD Code Afib - Dr. Montoya Hypertension Sleep apnea--has not been able to tolera te the CPAP Back pain--lumbar disc disease Denies SD,DM,CVA,Lung disease,renal dise ase Surgical History Surgery Date(Month/Year) Right elbow 2012 Left knee 2015 Left elbow 2017 Right big toe 2008
== END 2025-03-24 13:19 | disposition home or self-care (01) ==
PROVIDERS: PCP Student in an Organized Health Care Education/Training Program; Visit Provider Internal Medicine
DX: I48.0 Paroxysmal atrial fibrillation (principal); I10 Essential (primary) hypertension; E66.01 Morbid (severe) obesity due to excess calories; G47.33 Obstructive sleep apnea (adult) (pediatric)
CPT/HCPCS: 93010; 99214

== ENCOUNTER → 2025-03-24 12:48 | Outpatient (BNVA) | payer BC, SELFPAY | PROVIDERS: PCP Family Medicine; Visit Provider Internal Medicine | DX: I48.0 Paroxysmal atrial fibrillation (principal); I10 Essential (primary) hypertension; E66.01 Morbid (severe) obesity due to excess calories; G47.33 Obstructive sleep apnea (adult) (pediatric); Z68.35 Body mass index [BMI] 35.0-35.9, adult; Z79.01 Long term (current) use of anticoagulants | CPT/HCPCS: 93005 ==